=== PATIENT | female | born 1975 | race Caucasian/White ===

== ENCOUNTER 2020-08-27 07:45 | Outpatient (REF) | payer OTHER, SELFPAY ==
[2020-08-27 11:21] LABS: MANUAL DIFF FLAG NO
[2020-08-27 11:30] LABS: Basophils Absolute Auto 0.1 X10*3/uL (0.0-0.2); Basophils Percent Auto 0.6 % (0-2); Eosinophils Absolute Auto 0.4 X10*3/uL (0.0-0.4); Hematocrit 41.1 % (37-47); Hemoglobin 13.7 g/dl (12.0-16.0); Imm Gran Abs Auto 0.04 X10*3/uL (0.00-0.03); Imm Gran Pct Auto 0.4 % (0.0-0.4); Lymphocytes Absolute Auto 2.7 X10*3/uL (1.2-4.9); Mean Corpuscular HGB Conc 33.3 g/dl (31.0-35.0); Mean Corpuscular Hemoglobin 29.7 pg (27.0-33.0); Mean Platelet Volume 11.1 fL (9.4-12.3); Monocytes Absolute Auto 0.7 X10*3/uL (0.1-1.2); Monocytes Percent Auto 7.9 % (2-11); Neutrophils Absolute Auto 5.2 X10*3/uL (2.0-8.3); Neutrophils Percent Auto 57.1 % (45-73); Platelet Count 330 X10*3/uL (160-400); Red Blood Count 4.62 X10*6/uL (4.20-5.50); Red Cell Distribution Width 12.9 % (11.0-16.0); White Blood Count 9.1 X10*3/uL (4.8-10.8)
[2020-08-27 11:43] LABS: Estimated Average Glucose 169 mg/dL; Hemoglobin A1c % 7.5 %
[2020-08-27 12:17] LABS: Alanine Aminotransferase 49 U/L (0-31); Albumin Level 4.5 g/dL (3.5-5.0); Alkaline Phosphatase 68 U/L (39-117); Anion Gap 14 (12-20); Aspartate Amino Transferase 30 U/L (5-31); Bilirubin Total 0.8 mg/dL (0.0-1.0); Blood Urea Nitrogen 13 mg/dL (9-16); Calcium 9.4 mg/dL (8.4-10.2); Carbon Dioxide 24 mmol/L (22-29); Chloride 103 mmol/L (96-108); Cholesterol 162 mg/dL; Estimated Glomerular Filt Rate > 60; Glucose Fasting 171 mg/dL (60-99); HDL Cholesterol 26 mg/dL; LDL Cholesterol Calculated 97 mg/dl; Sodium 136 mmol/L (135-145); Total Protein 7.1 g/dL (6.5-8.0); Triglycerides 196 mg/dL
[2020-08-27 12:23] LABS: Creatinine Urine 214.25 mg/dL; Microalbum/Creatinine Ratio Ur 59.2 ug/mg cr
== END 2020-08-27 07:46 | disposition home or self-care (01) ==
LOC: HO.HMGCLDS 07:45
PROVIDERS: PCP Internal Medicine Nephrology; Visit Provider Internal Medicine Nephrology
DX: E11.9 Type 2 diabetes mellitus without complications (principal)
CPT/HCPCS: 36415; 80053; 80061; 82043; 83036; 85025

== ENCOUNTER 2021-07-26 09:43 | Outpatient (REF) | payer OTHER, SELFPAY ==
[2021-07-26 10:08] LABS: COVID-19 Test Negative (Negative)
== END 2021-07-26 09:44 | disposition home or self-care (01) ==
LOC: HO.LAB 09:43
PROVIDERS: PCP Internal Medicine; Visit Provider Internal Medicine
DX: Z20.822 Contact with and (suspected) exposure to COVID-19 (principal)
CPT/HCPCS: 36415; 87635; C9803

== ENCOUNTER 2021-09-29 08:55 | Outpatient (REF) | payer OTHER, SELFPAY ==
[2021-09-29 11:31] LABS: Hematocrit 39.3 % (37.0-47.0); Hemoglobin 12.7 g/dl (12.0-16.0); Mean Corpuscular HGB Conc 32.3 g/dl (31.0-35.0); Mean Corpuscular Hemoglobin 27.9 pg (27.0-33.0); Mean Corpuscular Volume 86.4 fL (80.0-98.0); Mean Platelet Volume 11.2 fL (9.4-12.3); Platelet Count 341 X10*3/uL (160-400); Red Blood Count 4.55 X10*6/uL (4.20-5.50); Red Cell Distribution Width 13.4 % (11.0-16.0); White Blood Count 7.8 X10*3/uL (4.8-10.8)
[2021-09-29 11:40] LABS: Estimated Average Glucose 186 mg/dL; Hemoglobin A1c % 8.1 %
[2021-09-29 12:02] LABS: Alanine Aminotransferase 48 U/L (0-31); Albumin Level 4.3 g/dL (3.5-5.0); Alkaline Phosphatase 36 U/L (39-117); Anion Gap 13 (12-20); Aspartate Amino Transferase 24 U/L (5-31); Bilirubin Total 0.3 mg/dL (0.0-1.0); Blood Urea Nitrogen 13 mg/dL (9-16); Calcium 9.7 mg/dL (8.4-10.2); Carbon Dioxide 20 mmol/L (22-29); Chloride 110 mmol/L (96-108); Cholesterol 254 mg/dL; Estimated Glomerular Filt Rate > 60; Glucose Fasting 221 mg/dL (60-99); HDL Cholesterol 22 mg/dL; LDL Cholesterol Calculated 162 mg/dl; Potassium 4.6 mmol/L (3.3-5.1); Sodium 138 mmol/L (135-145); Total Protein 7.1 g/dL (6.5-8.0); Triglycerides 350 mg/dL
[2021-09-29 12:26] LABS: Creatinine Urine 216.01 mg/dL; Microalbum/Creatinine Ratio Ur 36.5 ug/mg cr
== END 2021-09-29 08:56 | disposition home or self-care (01) ==
LOC: HO.HMGCLDS 08:55
PROVIDERS: PCP Internal Medicine; Visit Provider Internal Medicine
DX: E11.9 Type 2 diabetes mellitus without complications (principal); I10 Essential (primary) hypertension; M54.9 Dorsalgia, unspecified
CPT/HCPCS: 36415; 80053; 80061; 82043; 83036; 85027

== ENCOUNTER 2022-01-29 08:56 | Outpatient (REF) | payer SELFPAY ==
[2022-01-29 11:39] LABS: Estimated Average Glucose 174 mg/dL; Hemoglobin A1c % 7.7 %
[2022-01-29 11:47] LABS: Alanine Aminotransferase 36 U/L (0-31); Albumin Level 4.3 g/dL (3.5-5.0); Alkaline Phosphatase 50 U/L (39-117); Anion Gap 14 (12-20); Aspartate Amino Transferase 23 U/L (5-31); Bilirubin Total 0.7 mg/dL (0.0-1.0); Blood Urea Nitrogen 15 mg/dL (9-16); Calcium 9.6 mg/dL (8.4-10.2); Carbon Dioxide 19 mmol/L (22-29); Chloride 107 mmol/L (96-108); Cholesterol 182 mg/dL; Estimated Glomerular Filt Rate > 60; Glucose Fasting 185 mg/dL (60-99); HDL Cholesterol 31 mg/dL; LDL Cholesterol Calculated 113 mg/dl; Potassium 4.4 mmol/L (3.3-5.1); Sodium 136 mmol/L (135-145); Total Protein 7.1 g/dL (6.5-8.0); Triglycerides 190 mg/dL
[2022-01-29 13:38] LABS: Creatinine Urine 101.42 mg/dL; Microalbum/Creatinine Ratio Ur 5.9 ug/mg cr
== END 2022-01-29 08:57 | disposition home or self-care (01) ==
LOC: HO.HMGCLDS 08:56
PROVIDERS: PCP Internal Medicine; Visit Provider Internal Medicine
DX: E78.5 Hyperlipidemia, unspecified (principal); E11.9 Type 2 diabetes mellitus without complications; I10 Essential (primary) hypertension
CPT/HCPCS: 36415; 80053; 80061; 82043; 83036

== ENCOUNTER 2022-04-25 08:18 | Outpatient (REF) | payer OTHER, SELFPAY ==
[2022-04-25 12:11] LABS: Alanine Aminotransferase 27 U/L (0-31); Albumin Level 4.2 g/dL (3.5-5.0); Alkaline Phosphatase 50 U/L (39-117); Anion Gap 14 (12-20); Aspartate Amino Transferase 18 U/L (5-31); Bilirubin Total 0.2 mg/dL (0.0-1.0); Blood Urea Nitrogen 14 mg/dL (9-16); Calcium 9.1 mg/dL (8.4-10.2); Carbon Dioxide 20 mmol/L (22-29); Chloride 107 mmol/L (96-108); Cholesterol 229 mg/dL; Estimated Glomerular Filt Rate > 60; Glucose Fasting 184 mg/dL (60-99); HDL Cholesterol 30 mg/dL; Potassium 4.4 mmol/L (3.3-5.1); Sodium 137 mmol/L (135-145); Triglycerides 449 mg/dL
[2022-04-25 12:24] LABS: Estimated Average Glucose 163 mg/dL; Hemoglobin A1c % 7.3 %
[2022-04-25 12:32] LABS: Creatinine Urine 37.54 mg/dL; Microalbumin Urine < 5.0 mg/L
== END 2022-04-25 08:19 | disposition home or self-care (01) ==
LOC: HO.HMGCLDS 08:18
PROVIDERS: PCP Internal Medicine; Visit Provider Internal Medicine
DX: I10 Essential (primary) hypertension (principal); E11.9 Type 2 diabetes mellitus without complications
CPT/HCPCS: 36415; 80053; 80061; 82043; 83036

== ENCOUNTER 2022-09-05 09:14 | Outpatient (REF) | payer OTHER, SELFPAY ==
[2022-09-05 11:21] LABS: MANUAL DIFF FLAG NO
[2022-09-05 11:30] LABS: Basophils Absolute Auto 0.1 X10*3/uL (0.0-0.2); Basophils Percent Auto 0.8 % (0-2); Eosinophils Absolute Auto 0.2 X10*3/uL (0.0-0.4); Eosinophils Percent Auto 1.9 % (0-4); Hematocrit 44.9 % (37.0-47.0); Hemoglobin 14.4 g/dl (12.0-16.0); Imm Gran Abs Auto 0.03 X10*3/uL (0.00-0.03); Imm Gran Pct Auto 0.3 % (0.0-0.4); Lymphocytes Absolute Auto 2.4 X10*3/uL (1.2-4.9); Lymphocytes Percent Auto 26.7 % (20-40); Mean Corpuscular HGB Conc 32.1 g/dl (31.0-35.0); Mean Corpuscular Hemoglobin 28.5 pg (27.0-33.0); Mean Corpuscular Volume 88.9 fL (80.0-98.0); Monocytes Absolute Auto 0.7 X10*3/uL (0.1-1.2); Monocytes Percent Auto 7.5 % (2-11); Neutrophils Absolute Auto 5.6 x10*3/uL (2.0-8.3); Neutrophils Percent Auto 62.8 % (45-73); Platelet Count 303 X10*3/uL (160-400); Red Blood Count 5.05 X10*6/uL (4.20-5.50); Red Cell Distribution Width 13.2 % (11.0-16.0)
[2022-09-05 11:36] LABS: Estimated Average Glucose 148 mg/dL; Hemoglobin A1c % 6.8 %
[2022-09-05 11:53] LABS: Creatinine Urine 103.62 mg/dL; Microalbum/Creatinine Ratio Ur 5.7 ug/mg cr
[2022-09-05 12:25] LABS: Alanine Aminotransferase 32 U/L (0-31); Albumin Level 4.2 g/dL (3.5-5.0); Alkaline Phosphatase 48 U/L (39-117); Anion Gap 12 (12-20); Aspartate Amino Transferase 19 U/L (5-31); Bilirubin Total 0.4 mg/dL (0.0-1.0); Blood Urea Nitrogen 13 mg/dL (9-16); Calcium 9.4 mg/dL (8.4-10.2); Carbon Dioxide 21 mmol/L (22-29); Chloride 107 mmol/L (96-108); Cholesterol 149 mg/dL; Estimated Glomerular Filt Rate > 60; Glucose Fasting 166 mg/dL (60-99); HDL Cholesterol 28 mg/dL; LDL Cholesterol Calculated 85 mg/dl; Potassium 4.2 mmol/L (3.3-5.1); Sodium 136 mmol/L (135-145); TSH reflex Free T4 1.42 uIU/mL (0.32-4.0); Total Protein 6.7 g/dL (6.5-8.0); Triglycerides 184 mg/dL
== END 2022-09-05 09:15 | disposition home or self-care (01) ==
LOC: HO.HMGCLDS 09:14
PROVIDERS: PCP Internal Medicine; Visit Provider Internal Medicine
DX: E11.9 Type 2 diabetes mellitus without complications (principal); E78.5 Hyperlipidemia, unspecified; I10 Essential (primary) hypertension
CPT/HCPCS: 36415; 80053; 80061; 82043; 83036; 84443; 85025

== ENCOUNTER → 2022-10-25 12:30 | Outpatient (BNVA) | payer OTHER, SELFPAY | PROVIDERS: PCP Internal Medicine; Visit Provider Dietitian, Registered | DX: E11.9 Type 2 diabetes mellitus without complications (principal); Z71.3 Dietary counseling and surveillance | CPT/HCPCS: 97802 ==

== ENCOUNTER 2023-02-21 08:55 | Outpatient (REF) | payer OTHER, SELFPAY ==
[2023-02-21 11:08] LABS: MANUAL DIFF FLAG NO
[2023-02-21 11:39] LABS: Basophils Absolute Auto 0.1 X10*3/uL (0.0-0.2); Basophils Percent Auto 0.6 % (0-2); Eosinophils Absolute Auto 0.1 X10*3/uL (0.0-0.4); Eosinophils Percent Auto 1.2 % (0-4); Hematocrit 44.5 % (37.0-47.0); Hemoglobin 14.9 g/dl (12.0-16.0); Imm Gran Abs Auto 0.03 X10*3/uL (0.00-0.03); Imm Gran Pct Auto 0.3 % (0.0-0.4); Lymphocytes Absolute Auto 2.3 X10*3/uL (1.2-4.9); Lymphocytes Percent Auto 26.3 % (20-40); Mean Corpuscular HGB Conc 33.5 g/dl (31.0-35.0); Mean Corpuscular Hemoglobin 30.2 pg (27.0-33.0); Mean Corpuscular Volume 90.1 fL (80.0-98.0); Monocytes Absolute Auto 0.6 X10*3/uL (0.1-1.2); Monocytes Percent Auto 6.5 % (2-11); Neutrophils Absolute Auto 5.6 x10*3/uL (2.0-8.3); Neutrophils Percent Auto 65.1 % (45-73); Platelet Count 292 X10*3/uL (160-400); Red Blood Count 4.94 X10*6/uL (4.20-5.50); Red Cell Distribution Width 13.1 % (11.0-16.0); White Blood Count 8.6 X10*3/uL (4.8-10.8)
[2023-02-21 11:47] LABS: Estimated Average Glucose 154 mg/dL
[2023-02-21 11:55] LABS: Creatinine Urine 80.15 mg/dL; Microalbum/Creatinine Ratio Ur 14.9 ug/mg cr
[2023-02-21 12:15] LABS: Alanine Aminotransferase 29 U/L (0-31); Albumin Level 4.1 g/dL (3.5-5.0); Alkaline Phosphatase 51 U/L (39-117); Anion Gap 12 (12-20); Aspartate Amino Transferase 15 U/L (5-31); Bilirubin Total 0.4 mg/dL (0.0-1.0); Blood Urea Nitrogen 12 mg/dL (9-16); Calcium 9.9 mg/dL (8.4-10.2); Carbon Dioxide 21 mmol/L (22-29); Chloride 110 mmol/L (96-108); Cholesterol 143 mg/dL; Estimated Glomerular Filt Rate > 60; Glucose Fasting 192 mg/dL (60-99); HDL Cholesterol 31 mg/dL; LDL Cholesterol Calculated 86 mg/dl; Potassium 4.1 mmol/L (3.3-5.1); Sodium 139 mmol/L (135-145); Total Protein 6.7 g/dL (6.5-8.0); Triglycerides 130 mg/dL
[2023-02-22 12:38] LABS: BV Int Neg Control Negative (Negative); BV Int Pos Control Positive (Positive)
== END 2023-02-21 08:56 | disposition home or self-care (01) ==
LOC: HO.HMGCLDS 08:55
PROVIDERS: PCP Internal Medicine; Visit Provider Internal Medicine
DX: E11.9 Type 2 diabetes mellitus without complications (principal); E78.5 Hyperlipidemia, unspecified; I10 Essential (primary) hypertension; N76.0 Acute vaginitis
CPT/HCPCS: 36415; 80053; 80061; 82043; 83036; 85025; 87480; 87510; 87660

== ENCOUNTER 2023-02-21 12:53 | Outpatient (REF) | payer OTHER, SELFPAY | END 2023-02-21 12:54 | disposition home or self-care (01) | LOC: HO.LAB 12:53 | PROVIDERS: Visit Provider Internal Medicine | DX: Z13.89 Encounter for screening for other disorder (principal) ==

== ENCOUNTER 2023-04-17 12:21 | Outpatient (AMB) | payer OTHER, SELFPAY ==
--- NOTE | 2023-04-17 13:48 | AM.OFFWIN_ITS ---
Intake Vital Signs 04/17/23 13:55 Height 5 ft 6 in BP 120/70 Blood Pressure Location Lt brachial Position Sitting Pulse 98 Pulse Source Pulse Oximeter Temp 97.8 F Temp Source Temporal Artery Scan Pulse Oximetry (%) 99 Oxygen Delivery Method Room Air Intake Visit Reasons: EP Vaginal itching/burning (lobby) Intake Note: Pt is here c/o vaginal itching and burning sensation. Pt states it has been on going on and off for four months. Patient Tobacco Use Status: Never used Tobacco Allergies No Known Allergies Allergy (Verified 04/17/23 13:55) Do you need a note to return to daycare/school/sports/work: No HPI HPI Comments History of Present Illness Details 47-year-old female presents for continued vaginal itching and irrit ation. Was treated for a yeast infection on 02/21/2023 with poor effects. She states that her vagina is still irritated, inflamed, and burned every time she urinates or takes a shower. She has no risk of sexually transmitted infection, and does not report malodorous discharge. ON LICENSE OF [facility] Medical History Back pain Blurred vision, bilateral Diabetes High cholesterol Hyperlipidemia Hypertension Normal pelvic exam Family History Father Hypertension CVA (cerebral vascular accident), Onset Age: 53 Social History Household Members Other:: , from [facility] Alcohol intake: current Alcohol intake frequency: holidays/special occasions only Patient Tobacco Use Status: Never used Tobacco e-Cigarette/Vaping Use: Never Used Current occupational status: employed Cognitive needs: No Hearing needs: No Vision needs: No Review of Systems Const Details: Constitutional: No Fever, No Chills Cardiovascular: No Chest Pain, No SOB Respiratory: No Cough, No Dyspnea Gastrointestinal: No Nausea, No Vomiting, No Diarrhea, No abdominal Pain Genitourinary: Positive Dysuria, positive vaginal irritation, No Hematuria Musculoskeletal: No joint pain, No Myalgias, No Joint Swelling Skin: No Skin lacerations, No rash Neuro: No Weakness, No Dizziness, No Headache All systems reviewed & are unremarkable except as noted in HPI and below Physical Exam Vital Signs: Last Vital Signs Temp 97.8 F 04/17/23 13:55 Pulse 98 04/17/23 13:55 BP 120/70 04/17/23 13:55 Pulse Ox 99 04/17/23 13:55 Oxygen Delivery Method Room Air 04/17/23 13:55 Appearance: Alert. Oriented X3. No acute distress. Eyes: Pupils equal, round and reactive to light. Neck: Normal inspection. Neck supple. CVS: Normal heart rate and rhythm. Pulses normal. Respiratory: No respiratory distress. Breath sounds normal. Abdomen: Soft and nontender. Genitourinary: Labia excoriated, frothy nonodorous discharge from the vagina, no cervical motion tenderness, no adnexal tenderness. Skin: Skin warm and dry. Normal skin color. Normal skin turgor. Extremities: No lower extremity edema. Gait well balanced well coordinated. Neuro: No motor deficit. No sensory deficit. Cranial nerves 2-12 intact. Results AMB Urinalysis, Automated UA Leukoctes 0 Yehuda/uL Last Edit by Giovanna Ramos CMA on 04/17/23 14:01 UA Nitrite Negative Last Edit by Giovanna Ramos CMA on 04/17/23 14:01 UA Urobilinogen 0.2 mg/dL Last Edit by Giovanna Ramos CMA on 04/17/23 14:01 UA Protein 0 mg/dL Last Edit by Giovanna Ramos CMA on 04/17/23 14:01 UA pH 5.5 Last Edit by Giovanna Ramos, LUZ MARIA on 04/17/23 14:01 UA Blood 0 Julian/uL Last Edit by Giovanna Ramos, LUZ MARIA on 04/17/23 14:01 UA Specific [place] 1.020 Last Edit by Giovanna Ramos CMA on 04/17/23 14:0 1 UA Ketone Negative Last Edit by Giovanna Ramos CMA on 04/17/23 14:01 UA Bilirubin 0 mg/dL Last Edit by Giovanna Ramos CMA on 04/17/23 14:01 UA Glucose 1000 mg/dL Last Edit by Giovanna Ramos CMA on 04/17/23 14:01 AMB Urinalysis, Automated UA Leukoctes 0 Yehuda/uL Last Edit by Giovanna Ramos CMA on 04/17/23 14:06 UA Nitrite Negative Last Edit by Giovanna Ramos, LUZ MARIA on 04/17/23 14:06 UA Urobilinogen 0.2 mg/dL Last Edit by Giovanna Ramos, DROP WIRE OPERATOR on 04/17/23 14:06 UA Protein 0 mg/dL Last Edit by Giovanna Ramos, DROP WIRE OPERATOR on 04/17/23 14:06 UA pH 5.5 Last Edit by Giovanna Ramos, DROP WIRE OPERATOR on 04/17/23 14:06 UA Blood 10 Julian/uL Last Edit by Giovanna Ramos, DROP WIRE OPERATOR on 04/17/23 14:06 UA Specific [place] 1.025 Last Edit by Giovanna Ramos, DROP WIRE OPERATOR on 04/17/23 14:0 6 UA Ketone Negative Last Edit by Giovanna Ramos, LUZ MARIA on 04/17/23 14:06 UA Bilirubin 0 mg/dL Last Edit by Giovanna Ramos, DROP WIRE OPERATOR on 04/17/23 14:06 UA Glucose 0 mg/dL Last Edit by Giovanna Ramos, DROP WIRE OPERATOR on 04/17/23 14:06 Results Reviewed Results Reviewed: Laboratory Last Values Urine pH (Auto) 5.5 04/17/23 13:59 Urine pH (Auto) 5.5 04/17/23 13:59 Specific [place] (Auto) 1.020 04/17/23 13:59 Specific [place] (Auto) 1.025 04/17/23 13:59 Urine Protein (Auto) 0 mg/dL 04/17/23 13:59 Urine Protein (Auto) 0 mg/dL 04/17/23 13:59 Glucose (UA)(Auto) 0 mg/dL 04/17/23 13:59 Glucose (UA)(Auto) 1000 mg/dL 04/17/23 13:59 Urine Ketones (Auto) Negative 04/17/23 13:59 Urine Ketones (Auto) Negative 04/17/23 13:59 Urine Blood (Auto) 0 Julian/uL 04/17/23 13:59 Urine Blood (Auto) 10 Julian/uL 04/17/23 13:59 Urine Nitrite (Auto) Negative 04/17/23 13:59 Urine Nitrite (Auto) Negative 04/17/23 13:59 Urine Bilirubin (Auto) 0 mg/dL 04/17/23 13:59 Urine Bilirubin (Auto) 0 mg/dL 04/17/23 13:59 Urine Urobilinogen (Auto) 0.2 mg/dL 04/17/23 13:59 Urine Urobilinogen (Auto) 0.2 mg/dL 04/17/23 13:59 Leukocyte Esterase (Auto) 0 Yehuda/uL 04/17/23 13:59 Leukocyte Esterase (Auto) 0 Yehuda/uL 04/17/23 13:59 Assessment & Plan Assessment & Plan (1) Vaginitis: Code(s): N76.0 - Acute vaginitis Plan 47-year-old female presents with continued vaginal irritation and discharge. Was treated on 02/21/2023 for yeast infection however patient's symptoms have not alleviated. She does not report any discolored vaginal discharge, denies abdominal pain, fevers and chills. She does not have any risk for sexually transmitted infection, and feels that this could possibly be bacterial vaginosis or yeast. Patient is on Ozempic and is a diabetic. Physical exam indicates excoriated vaginal labia consistent with candidiasis, and frothy non odorous discharge consistent with bacterial vaginosis. 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 Patient does not have any cervical motion tenderness, or adnexal tenderness. Plan of care to treat for BV and recurrent candidiasis. Patient verbalized understanding of discharge instructions. Verbalized understandings of signs and symptoms indicating need for emergent intervention. Orders: Orders Bacterial Vaginosis Panel Today N76.0 - Acute vaginitis AMB Urinalysis Automated Today Z13.9 - Encounter for screening, unspecified AMB Urinalysis Automated Today Z13.9 - Encounter for screening, unspecified Medications: New metronidazole 500 mg PO Q8H 7 days 21 tabs 0RF fluconazole (Diflucan) may repeat second dose 72 hrs after first dose if symptoms persist 150 mg PO Q3D 2 tabs 0RF Patient Instructions: Voc? foi avaliado por irrita??o vaginal. Testamos voc? para vaginose bacteriana e candid?ase. Seu exame f?sico ? consistente com vaginose bacteriana. Estamos tratando voc? com Flagyl 500 mg a cada 8 horas chase os pr?ximos 7 paulino. Voc? n?o pode beber ?lcool com giselle medicamento. Mulat Diflucan 150 mg arun vez e repita em 3 paulino. Giselle medicamento ? para infec??o por fungos. Obrigado por escolher giselle atendimento urgente para avalia??o. Fa?a o acompanhamento com o m?dico de cuidados prim?rodriguez, conforme necess?wil. Retorne ao departamento de emerg?ncia para quaisquer sintomas novos, preocupantes ou agravados. You were evaluated for vaginal irritation. We tested you for bacterial vaginosis and candidiasis. Your physical exam is consistent with bacterial vaginosis. We are treating you with Flagyl 500 mg every 8 hours for the next 7 days. You cannot drink alcohol with this medication. Please take Diflucan 150 mg once, and then repeat in 3 days. This medication is for yeast infection. Thank you for choosing this urgent care for evaluation. Please follow-up with primary care physician as needed. Return to the emergency department for any new, concerning, or worsening symptoms. Coding Level of Care Code Est Pt Level 3 (60484) Diagnoses Vaginitis N76.0
[2023-04-17 13:55] VITALS: BP 120/70; PULSE 98; TEMP 36.6; O2SAT 99
== END 2023-04-17 14:47 | disposition home or self-care (01) ==
PROVIDERS: PCP Internal Medicine; Visit Provider Nurse Practitioner Family
DX: N76.0 Acute vaginitis (principal); Z13.9 Encounter for screening, unspecified
CPT/HCPCS: 81003; 99213

== ENCOUNTER 2023-04-17 13:59 | Outpatient (REF) | payer OTHER, SELFPAY ==
[2023-04-18 14:59] LABS: BV Int Neg Control Negative (Negative); BV Int Pos Control Positive (Positive)
== END 2023-04-17 14:00 | disposition home or self-care (01) ==
LOC: HO.LAB 13:59
PROVIDERS: Visit Provider Nurse Practitioner Family
DX: N76.0 Acute vaginitis (principal)
CPT/HCPCS: 87480; 87510; 87660

== ENCOUNTER 2023-05-16 07:31 | Outpatient (REF) | payer OTHER, SELFPAY ==
[2023-05-16 11:28] LABS: Estimated Average Glucose 134 mg/dL; Hemoglobin A1c % 6.3 % (<6.0)
[2023-05-16 11:41] LABS: Creatinine Urine 104.11 mg/dL; Microalbum/Creatinine Ratio Ur 8.6 ug/mg cr (<30)
[2023-05-16 11:52] LABS: Alanine Aminotransferase 35 U/L (0-31); Alkaline Phosphatase 45 U/L (39-117); Anion Gap 13 (12-20); Aspartate Amino Transferase 22 U/L (5-31); Bilirubin Total 0.4 mg/dL (0.0-1.0); Blood Urea Nitrogen 13 mg/dL (9-16); Calcium 9.5 mg/dL (8.4-10.2); Carbon Dioxide 20 mmol/L (22-29); Chloride 109 mmol/L (96-108); Estimated Glomerular Filt Rate > 60; Glucose Fasting 133 mg/dL (60-99); Potassium 3.8 mmol/L (3.3-5.1); Sodium 138 mmol/L (135-145); Total Protein 6.9 g/dL (6.5-8.0)
== END 2023-05-16 07:32 | disposition home or self-care (01) ==
LOC: HO.HMGCLDS 07:31
PROVIDERS: PCP Internal Medicine; Visit Provider Internal Medicine
DX: E11.9 Type 2 diabetes mellitus without complications (principal); I10 Essential (primary) hypertension; E78.5 Hyperlipidemia, unspecified
CPT/HCPCS: 36415; 80053; 82043; 83036

== ENCOUNTER 2023-05-17 12:08 | Outpatient (AMB) | payer OTHER, SELFPAY ==
--- NOTE | 2023-05-17 12:24 | MHC.PC.OV ---
Vital Signs 05/17/23 12:25 Height 5 ft 6 in Weight 169 lb 8 oz BMI 27.4 BP 108/60 Blood Pressure Location Rt brachial Position Sitting Pulse 78 Pulse Source Pulse Oximeter Pulse Oximetry (%) 96 Oxygen Delivery Method Room Air Intake Visit Reasons: Annual PE/DM Allergies No Known Allergies Allergy (Verified 05/17/23 12:26) Medication List - Last Reconciled 05/17/23 by Shelli Guadarrama MD atorvastatin 40 mg PO DAILY blood sugar diagnostic (FreeStyle Lite Strips) Test blood sugar once a day empagliflozin-linagliptin 25-5 mg (Glyxambi) 1 tab PO DAILY lancets (FreeStyle Lancets) As directed lisinopril 20 mg PO DAILY metformin ER 1,000 mg (2 x 500 mg) PO BID semaglutide (Ozempic) 0.25 mg (0.368 mL) subcut QWEEK Tobacco use date assessed: 05/17/23 HPI Annual PE/DM HPI Details Pt presents fo PE. Patient complains of chronic lower back pain and stiffness worse in the morning. 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 Patient denies lower back pain radiating to lower extremities, weakness or numbness in extremities. [facility] Medical History Back pain Blurred vision, bilateral Diabetes High cholesterol Hyperlipidemia Hypertension Normal pelvic exam Family History Father Hypertension CVA (cerebral vascular accident), Onset Age: 53 Social History Household Members Other:: , from [place] Housing: Condominium Alcohol intake: current Alcohol intake frequency: holidays/special occasions only Patient Tobacco Use Status: Never used Tobacco e-Cigarette/Vaping Use: Never Used Current occupational status: employed Cognitive needs: No Hearing needs: No Vision needs: No Questionnaire Thrive Questionnaire Date Thrive assessed: 11/15/21 CHELLY-7 AMB Questionnaire CHELLY-7 Date CHELLY - 7 assessed: 11/15/21 Source: Developed by Drs. Vinnie George, Veronique Mayers, Herman Nicole and colleagues, with an educational angel from [employer]. Review of Systems Const All systems reviewed & are unremarkable except as noted in HPI and below Reports no additional complaints Eyes Reports no additional complaints ENT Reports no additional complaints Physical exam (Primary Care) Vital Signs: Last Vital Signs Pulse 78 05/17/23 12:25 BP 108/60 05/17/23 12:25 Pulse Ox 96 05/17/23 12:25 Oxygen Delivery Method Room Air 05/17/23 12:25 BMI result Body Mass Index 27.4 Tobacco/Smoking Status: Tobacco use Status Tobacco use date assessed 05/17/23 05/17/23 12:30 Patient Tobacco Use Status Never used Tobacco 05/17/23 12:24 e-Cigarette/Vaping Use Never Used 05/17/23 12:24 Thrive Assessment: Date of Thrive Assessment Date Thrive assessed 11/15/21 05/17/23 12:24 Const General: no acute distress HENMT Head: Yes normal to inspection Ears: hearing grossly normal bilaterally General nose exam: Normal external nose present Face and sinus: Yes normal facial exam Mouth: Normal oral and palatal mucosa present Throat: Yes posterior oropharynx normal Eyes General: appearance normal, both eyes and all related structures Neck Neck: Yes no lymphadenopathy and Yes supple Resp Effort & Inspection: normal respiratory effort Auscultation: clear to auscultation bilaterally Cardio Rhythm: regular rhythm Heart sounds: S1 normal heart sound present and S2 normal heart sound present GI Inspection: Yes normal to inspection Palpation (GI): Soft to palpation Percussion: Yes normal to percussion Auscultation: normal bowel sounds Back/Spine/Pelvis Other: Decreased range of motion in lumbar spine, paraspinal tenderness bilaterally, straight leg rising 90 degrees bilaterally Assessment and Plan Assessment & Plan (1) Lower back pain: Code(s): M54.50 - Low back pain, unspecified Plan: Referred to physical (2) Hyperlipidemia: Code(s): E78.5 - Hyperlipidemia, unspecified Plan: Continue statin (3) Diabetes: Code(s): E11.9 - Type 2 diabetes mellitus without complications Plan: A1c is down to 6.3, continue current medications ADA diet increase physical activity, follow-up in 3 months with a fasting labs before (4) Hypertension: Code(s): I10 - Essential (primary) hypertension Plan: Continue lisinopril (5) Annual physical exam: Code(s): Z00.00 - Encounter for general adult medical examination without abnormal findings Plan: Well-balanced diet regular physical activity discussed with the patient. Refer for screening colonoscopy. Orders: Orders PT Evaluation and Treatment Today M54.50 - Low back pain, unspecified Comprehensive [place]. Panel Fast 3 Months E11.9 - Type 2 diabetes mellitus without complications, E78.5 - Hyperlipidemia, unspecified, I10 - Essential (primary) hypertension Hemoglobin A1c 3 Months E11.9 - Type 2 diabetes mellitus without complications, E78.5 - Hyperlipidemia, unspecified, I10 - Essential (primary) hypertension Lipid Panel 3 Months E11.9 - Type 2 diabetes mellitus without complications, E78.5 - Hyperlipidemia, unspecified, I10 - Essential (primary) hypertension Microalbumin, Random (w Creat) 3 Months E11.9 - Type 2 diabetes mellitus without complications, E78.5 - Hyperlipidemia, unspecified, I10 - Essential (primary) hypertension Complete Blood Count Auto Diff 3 Months E11.9 - Type 2 diabetes mellitus without complications, E78.5 - Hyperlipidemia, unspecified, I10 - Essential (primary) hypertension Referrals Gastroenterology Referral Z00.00 - Encounter for general adult medical examination without abnormal findings Medications: Changed From semaglutide (Ozempic) for 4 weeks, then 0.5 mg Q week, 0.25 mg (0.368 mL) subcut QWEEK 3 mL 4RF To semaglutide (Ozempic) 0.5 mg Q week, 0.25 mg (0.368 mL) subcut QWEEK 9 mL 4RF Coding Level of Care Code Est Pt Prev Care 40-64y(78877) Diagnoses Lower back pain M54.50 Hyperlipidemia E78.5 Diabetes E11.9 Hypertension I10 Annual physical exam Z00.00
[2023-05-17 12:25] VITALS: BP 108/60; PULSE 78; O2SAT 96; BMI 27.4
== END 2023-05-17 13:17 | disposition home or self-care (01) ==
PROVIDERS: Visit Provider Internal Medicine
DX: Z00.00 Encounter for general adult medical examination without abnormal findings (principal); E11.9 Type 2 diabetes mellitus without complications; I10 Essential (primary) hypertension; M54.50 Low back pain, unspecified; E78.5 Hyperlipidemia, unspecified
CPT/HCPCS: 99396

== ENCOUNTER 2023-08-14 12:10 | Outpatient (AMB) | payer OTHER, SELFPAY ==
--- NOTE | 2023-08-14 12:17 | MHC.OFFVIS ---
Intake Vital Signs 08/14/23 12:18 Height 5 ft 6 in Weight 169 lb 12.095 oz BMI 27.4 BP 101/66 Blood Pressure Location Lt brachial Position Sitting Pulse 80 Pulse Source Pulse Oximeter Intake Visit Reasons: Colonoscopy Screening Intake Note: Pt presents to the office today for a colonoscopy screening. Pt states she is feeling well and denies any GI concerns at this time. Accompanied by: Spouse Allergies No Known Allergies Allergy (Verified 08/14/23 12:20) HPI HPI Comments History of Present Illness Details A DM 48 y/o female referred for index screening colonoscopy appetite- good Bowels- ok - fluctuate due to DM medications No respiratory or cardiac issues No N/V/abdominal pain- fever orchills PFSH Medical History Blurred vision, bilateral Hyperlipidemia Back pain Normal pelvic exam High cholesterol Hypertension Diabetes Family History Father Hypertension CVA (cerebral vascular accident), Onset Age: 53 Social History Household Members Other:: , from [place] Housing: Condominium Alcohol intake: current Alcohol intake frequency: holidays/special occasions only Patient Tobacco Use Status: Never used Tobacco e-Cigarette/Vaping Use: Never Used Current occupational status: employed Cognitive needs: No Hearing needs: No Vision needs: No Review of Systems Const All systems reviewed & are unremarkable except as noted in HPI and below Card Denies chest pain and Denies dyspnea Resp Denies dyspnea GI Denies abdominal pain, Denies hematochezia, Denies change in bowel habits, Denies nausea and Denies vomiting Musc Reports back pain Physical Exam Vital Signs: Last Vital Signs Pulse 80 08/14/23 12:18 BP 101/66 08/14/23 12:18 BMI result Body Mass Index 27.4 Const General: cooperative, healthy appearing and comfortable Orientation/consciousness: patient oriented x3 Limitations: language barrier Eyes Sclerae: sclerae normal Resp Effort & Inspection: normal respiratory effort and able to speak in complete sentences Auscultation: clear to auscultation bilaterally, no rales, no rhonchi and no wheezes Cardio Rate: regular rate Rhythm: regular rhythm Heart sounds: S1 normal heart sound present and S2 normal heart sound present GI Palpation (GI): Soft to palpation and nontender Auscultation: normal bowel sounds Skin General skin exam: no rashes or lesions noted Neuro General: patient oriented x3 Extrem General: Yes full ROM Psych Appearance: grossly normal and well kempt Mental Status: mental status grossly normal Speech and movement: Normal speech and movement present and Clear speech present Affect: normal affect Attitude: cooperative Thought process: Normal thought process present Insight: Good insight present (Psych) Judgement: Good judgement present (Psych) Assessment & Plan Assessment & Plan (1) Encounter for screening colonoscopy: Comment: pleasant- present- no complaints Code(s): Z12.11 - Encounter for screening for malignant neoplasm of colon Plan Colonoscopy Miralax- gatorade discussed DM meds- D/C ozempic dose 1 wk prior No metformin pm before No DM meds a.m. of procedure Orders: Orders Colonoscopy - GI Use Only Today Z12.11 - Encounter for screening for malignant neoplasm of colon Medications: New bisacodyl (Dulcolax (bisacodyl)) Day before procedure, prep day Take 4 tablets by mouth upon awakening followed by large glass of water 20 mg (4 x 5 mg) PO ONCE 1 day 4 tabs 0RF colonoscopy prep Z12.11 - Encounter for screening for malignant neoplasm of colon polyethylene glycol 3350 (Miralax) Take as directed by mouth the day before your procedure. 238 grams PO ONCE 1 day PRN 238 grams 0RF laxative effect Patient Instructions: Index Colonoscopy Miralax- gatorade- reviewed- lit given discussed DM meds- D/C ozempic dose 1 wk prior No metformin pm before No DM meds a.m. of procedure Coding Level of Care Code New Pt Level 3 (42461) Diagnoses Encounter for screening colonoscopy Z12.11 Time Spent (min) 30
[2023-08-14 12:18] VITALS: BP 101/66; PULSE 80; BMI 27.4
== END 2023-08-14 13:27 | disposition home or self-care (01) ==
PROVIDERS: PCP Internal Medicine; Visit Provider Physician Assistant
DX: Z01.818 Encounter for other preprocedural examination (principal); Z12.11 Encounter for screening for malignant neoplasm of colon
CPT/HCPCS: S0285

== ENCOUNTER → 2023-08-14 12:10 | Outpatient (BNVA) | payer OTHER, SELFPAY | PROVIDERS: PCP Internal Medicine; Visit Provider Physician Assistant ==

== ENCOUNTER 2023-09-04 07:28 | Outpatient (REF) | payer OTHER, SELFPAY ==
[2023-09-04 11:23] LABS: MANUAL DIFF FLAG NO
[2023-09-04 11:36] LABS: Basophils Absolute Auto 0.1 X10*3/uL (0.0-0.2); Basophils Percent Auto 0.6 % (0-2); Eosinophils Absolute Auto 0.1 X10*3/uL (0.0-0.4); Eosinophils Percent Auto 1.4 % (0-4); Hematocrit 44.8 % (37.0-47.0); Hemoglobin 14.6 g/dl (12.0-16.0); Imm Gran Abs Auto 0.02 X10*3/uL (0.00-0.03); Imm Gran Pct Auto 0.2 % (0.0-0.4); Lymphocytes Percent Auto 35.9 % (20-40); Mean Corpuscular HGB Conc 32.6 g/dl (31.0-35.0); Mean Corpuscular Hemoglobin 29.2 pg (27.0-33.0); Mean Corpuscular Volume 89.6 fL (80.0-98.0); Mean Platelet Volume 10.9 fL (9.4-12.3); Monocytes Absolute Auto 0.6 X10*3/uL (0.1-1.2); NRBC Pct Auto 0.2 /100WBC (0.0-0.2); Neutrophils Absolute Auto 4.6 x10*3/uL (2.0-8.3); Neutrophils Percent Auto 54.9 % (45-73); Platelet Count 311 X10*3/uL (160-400); Red Cell Distribution Width 13.3 % (11.0-16.0); White Blood Count 8.4 X10*3/uL (4.8-10.8)
[2023-09-04 11:54] LABS: Estimated Average Glucose 143 mg/dL; Hemoglobin A1c % 6.6 % (<6.0)
[2023-09-04 12:16] LABS: Alanine Aminotransferase 35 U/L (0-31); Albumin Level 4.2 g/dL (3.5-5.0); Alkaline Phosphatase 49 U/L (39-117); Anion Gap 14 (12-20); Aspartate Amino Transferase 22 U/L (5-31); Bilirubin Total 0.4 mg/dL (0.0-1.0); Blood Urea Nitrogen 15 mg/dL (9-16); Calcium 9.5 mg/dL (8.4-10.2); Carbon Dioxide 18 mmol/L (22-29); Chloride 110 mmol/L (96-108); Cholesterol 149 mg/dL (<200); Estimated Glomerular Filt Rate > 60; Glucose Fasting 143 mg/dL (60-99); HDL Cholesterol 29 mg/dL (>40); LDL Cholesterol Calculated 87 mg/dL (<100); Potassium 3.8 mmol/L (3.3-5.1); Sodium 138 mmol/L (135-145); Triglycerides 169 mg/dL (<150)
[2023-09-04 12:46] LABS: Creatinine Urine 59.59 mg/dL; Microalbum/Creatinine Ratio Ur 8.3 ug/mg cr (<30)
== END 2023-09-04 07:29 | disposition home or self-care (01) ==
LOC: HO.HMGCLDS 07:28
PROVIDERS: PCP Internal Medicine; Visit Provider Internal Medicine
DX: E78.5 Hyperlipidemia, unspecified (principal); E11.9 Type 2 diabetes mellitus without complications; I10 Essential (primary) hypertension
CPT/HCPCS: 36415; 80053; 80061; 82043; 82570; 83036; 85025

== ENCOUNTER 2023-09-06 12:43 | Outpatient (AMB) | payer OTHER, SELFPAY ==
--- NOTE | 2023-09-06 12:59 | MHC.PC.OV ---
Vital Signs 09/06/23 13:00 Height 5 ft 6 in Weight 168 lb BMI 27.1 BP 108/68 Blood Pressure Location Lt brachial Position Sitting Pulse 81 Pulse Source Pulse Oximeter Pulse Oximetry (%) 97 Oxygen Delivery Method Room Air Intake Visit Reasons: 3 month fu Intake Note: pt is here today for 3 months follow up visit. Allergies No Known Allergies Allergy (Verified 09/06/23 13:00) Medication List - Last Reconciled 09/06/23 by Shelli Guadarrama MD atorvastatin 40 mg PO DAILY bisacodyl (Dulcolax (bisacodyl)) 20 mg (4 x 5 mg) PO ONCE 1 day blood sugar diagnostic (FreeStyle Lite Strips) Test blood sugar once a day empagliflozin-linagliptin 25-5 mg (Glyxambi) 1 tab PO DAILY lancets (FreeStyle Lancets) As directed lisinopril 20 mg PO DAILY metformin ER 1,000 mg (2 x 500 mg) PO BID polyethylene glycol 3350 (Miralax) 238 grams PO ONCE PRN 1 day semaglutide (Ozempic) 1 mg (0.75 mL) subcut QWEEK Tobacco use date assessed: 09/06/23 Dental Screening Dental Screen Date: 09/06/23 Did you have a dental visit in the last 12 months?: Yes Did you have a dental problem in the last 6 months where you did not have access to dental care?: No Was dental information given to patient?: Patient has dentist HPI 3 month fu HPI Details Patient presents for the follow-up of type 2 diabetes hypertension hyperlipidemia. Patient has been eating more carbohydrates and sweets recently, PFSH Medical History Blurred vision, bilateral Hyperlipidemia Back pain Normal pelvic exam High cholesterol Hypertension Diabetes Family History Father Hypertension CVA (cerebral vascular accident), Onset Age: 53 Social History Household Members Other:: , from [place] Housing: [facility] Alcohol intake: current Alcohol intake frequency: holidays/special occasions only Patient Tobacco Use Status: Never used Tobacco e-Cigarette/Vaping Use: Never Used Current occupational status: employed Cognitive needs: No Hearing needs: No Vision needs: No Questionnaire Thrive Questionnaire Date Thrive assessed: 11/15/21 CHELLY-7 AMB Questionnaire CHELLY-7 Date CHELLY - 7 assessed: 11/15/21 Source: Developed by Drs. Vinnie George, Veronique Mayers, Herman Nicole and colleagues, with an educational angel from [employer]. Review of Systems Const All systems reviewed & are unremarkable except as noted in HPI and below Reports no additional complaints Eyes Reports no additional complaints ENT Reports no additional complaints Card Reports no additional complaints Resp Reports no additional complaints GI Reports no additional complaints Reports no additional complaints Physical exam (Primary Care) Vital Signs: Last Vital Signs Pulse 81 09/06/23 13:00 BP 108/68 09/06/23 13:00 Pulse Ox 97 09/06/23 13:00 Oxygen Delivery Method Room Air 09/06/23 13:00 BMI result Body Mass Index 27.1 Tobacco/Smoking Status: Tobacco use Status Tobacco use date assessed 09/06/23 09/06/23 13:31 Patient Tobacco Use Status Never used Tobacco 09/06/23 13:00 e-Cigarette/Vaping Use Never Used 09/06/23 13:00 Thrive Assessment: Date of Thrive Assessment Date Thrive assessed 11/15/21 09/06/23 13:00 Const General: no acute distress HENMT Head: Yes normal to inspection Neck Neck: Yes no lymphadenopathy and Yes supple Resp Effort & Inspection: normal respiratory effort Auscultation: clear to auscultation bilaterally Cardio Rhythm: regular rhythm Heart sounds: S1 normal heart sound present and S2 normal heart sound present GI Inspection: Yes normal to inspection Palpation (GI): Soft to palpation Percussion: Yes normal to percussion Assessment and Plan Assessment & Plan (1) Hypertension: Code(s): I10 - Essential (primary) hypertension Plan: Continue lisinopril (2) Diabetes: Code(s): E11.9 - Type 2 diabetes mellitus without complications Plan: A1c is 6.6, ADA diet increase exercise weight loss discussed with the patient, Ozempic will be increased to 1 mg weekly patient will continue Glyxambi and metformin and will follow-up in 4 months with a fasting labs before (3) Hyperlipidemia: Code(s): E78.5 - Hyperlipidemia, unspecified Plan: Continue statin Orders: Orders Comprehensive [place]. Panel Fast 4 Months E11.9 - Type 2 diabetes mellitus without complications, E78.5 - Hyperlipidemia, unspecified, I10 - Essential (primary) hypertension Microalbumin, Random (w Creat) 4 Months E11.9 - Type 2 diabetes mellitus without complications, E78.5 - Hyperlipidemia, unspecified, I10 - Essential (primary) hypertension Hemoglobin A1c 4 Months E11.9 - Type 2 diabetes mellitus without complications, E78.5 - Hyperlipidemia, unspecified, I10 - Essential (primary) hypertension Medications: New semaglutide (Ozempic) 1 mg (0.75 mL) subcut QWEEK 9 mL 3RF Discontinued semaglutide (Ozempic) Discontinued Reason: Doctor's Order 0.5 mg (0.736 mL) subcut QWEEK 9 mL 4RF Coding Level of Care Code Est Pt Level 4 (86476) Diagnoses Hypertension I10 Diabetes E11.9 Hyperlipidemia E78.5
[2023-09-06 13:00] VITALS: BP 108/68; PULSE 81; O2SAT 97; BMI 27.1
== END 2023-09-06 14:05 | disposition home or self-care (01) ==
PROVIDERS: PCP Internal Medicine; Visit Provider Internal Medicine
DX: I10 Essential (primary) hypertension (principal); E11.9 Type 2 diabetes mellitus without complications; E78.5 Hyperlipidemia, unspecified
CPT/HCPCS: 99214

== ENCOUNTER 2024-02-13 07:26 | Outpatient (REF) | payer OTHER, SELFPAY ==
[2024-02-13 11:01] LABS: Alanine Aminotransferase 29 U/L (0-31); Albumin Level 4.1 g/dL (3.5-5.0); Alkaline Phosphatase 44 U/L (39-117); Anion Gap 13 (12-20); Aspartate Amino Transferase 19 U/L (5-31); Bilirubin Total 0.4 mg/dL (0.0-1.0); Blood Urea Nitrogen 12 mg/dL (9-16); Calcium 9.7 mg/dL (8.4-10.2); Carbon Dioxide 21 mmol/L (22-29); Chloride 108 mmol/L (96-108); Estimated Glomerular Filt Rate > 60; Glucose Fasting 146 mg/dL (60-99); Sodium 138 mmol/L (135-145); Total Protein 6.8 g/dL (6.5-8.0)
[2024-02-13 11:02] LABS: Estimated Average Glucose 146 mg/dL; Hemoglobin A1c % 6.7 % (<6.0)
[2024-02-13 11:12] LABS: Creatinine Urine 95.58 mg/dL; Microalbum/Creatinine Ratio Ur 26.1 ug/mg cr (<30)
== END 2024-02-13 07:27 | disposition home or self-care (01) ==
LOC: HO.HMGCLDS 07:26
PROVIDERS: PCP Internal Medicine; Visit Provider Internal Medicine
DX: I10 Essential (primary) hypertension (principal); E11.9 Type 2 diabetes mellitus without complications; E78.5 Hyperlipidemia, unspecified
CPT/HCPCS: 36415; 80053; 82043; 82570; 83036

== ENCOUNTER 2024-02-16 13:09 | Outpatient (AMB) | payer OTHER, SELFPAY ==
[2024-02-16 13:15] VITALS: BP 118/78; PULSE 76; O2SAT 97; BMI 26.1
--- NOTE | 2024-02-16 13:15 | MHC.PC.OV ---
Vital Signs 02/16/24 13:15 Height 5 ft 6 in Weight 162 lb BMI 26.1 BP 118/78 Blood Pressure Location Lt brachial Position Sitting Pulse 76 Pulse Source Pulse Oximeter Pulse Oximetry (%) 97 Oxygen Delivery Method Room Air Intake Visit Reasons: Check up, diet Intake Note: Pt is here today for 4 months follow up visit on labs. Pt states that she saw [facility] and had some testing done and was told that it was normal but she is still having itchiness and discomfort in her vaginal area. Pt states that the symptoms started after she was put on Ozempic. Allergies No Known Allergies Allergy (Verified 02/16/24 13:16) Medication List - Last Reconciled 02/16/24 by Shelli Guadarrama MD atorvastatin 40 mg PO DAILY bisacodyl (Dulcolax (bisacodyl)) 20 mg (4 x 5 mg) PO ONCE 1 day blood sugar diagnostic (FreeStyle Lite Strips) Test blood sugar once a day empagliflozin-linagliptin 25-5 mg (Glyxambi) 1 tab PO DAILY lancets (FreeStyle Lancets) As directed lisinopril 20 mg PO DAILY metformin ER 1,000 mg (2 x 500 mg) PO BID polyethylene glycol 3350 (Miralax) 238 grams PO ONCE PRN 1 day semaglutide (Ozempic) 2 mg (0.75 mL) subcut QWEEK Tobacco use date assessed: 02/16/24 Dental Screening Dental Screen Date: 02/16/24 Did you have a dental visit in the last 12 months?: Yes Did you have a dental problem in the last 6 months where you did not have access to dental care?: No Was dental information given to patient?: Patient has dentist HPI Check up, diet HPI Details Patient presents for the follow-up of type 2 diabetes hypertension hyperlipidemia.. [facility] Medical History Blurred vision, bilateral Hyperlipidemia Back pain Normal pelvic exam High cholesterol Hypertension Diabetes Surgical History No pertinent past surgical history Family History Father Hypertension CVA (cerebral vascular accident), Onset Age: 53 Social History Household Members Other:: , from [place] Housing: Condominium Alcohol intake: current Alcohol intake frequency: holidays/special occasions only Patient Tobacco Use Status: Never used Tobacco e-Cigarette/Vaping Use: Never Used service: No Current occupational status: employed Cognitive needs: No Hearing needs: No Vision needs: No Questionnaire PHQ-9 Over the last 2 weeks, how often have you been bothered by any of the following problems? 1. Little interest or pleasure in doing things: more than half the days 2. Feeling down, depressed, or hopeless: not at all 3. Trouble falling or staying asleep, or sleeping too much: not at all 4. Feeling tired or having little energy: several days 5. Poor appetite or overeating: not at all 6. Feeling bad about yourself - or that you are a failure or have let yourself or your family down: not at all 7. Trouble concentrating on things, such as reading the newspaper or watching television: more than half the days 8. Moving or speaking so slowly that other people could have noticed. Or the opposite - being so fidgety or restless that you have been moving around a lot more than usual: not at all 9. Thoughts that you would be better off or of hurting yourself in some way: not at all Total score: 5 Depression Screening Interpretation: Negative Depression Screening Done: Yes Source: Developed by Drs. Vinnie George, Veronique Mayers, Herman Nicole and colleagues, with an educational angel from [employer]. Thrive Questionnaire Date Thrive assessed: 02/16/24 I am a: Patient What is your living situation today?: I have a steady place to live Within the past 12 months, did the food you bought not last and you didn't have the money to get more?: Never true Within the past 12 months, did you worry whether your food would run out before you got money to buy more?: Never true Do you have trouble paying for medicines?: No Do you have trouble getting transportation to medical appointments?: No Do you have trouble paying your heating and electricity bill?: No Do you have trouble taking care of your child, family member or friend?: No Do you have trouble with day-to-day activities such as bathing, preparing meals, shopping, managing finances, etc.?: No Are you currently unemployed and looking for a job?: No Are you interested in more education?: No Please select the resources that you would like help with: None THRIVE Score: 0 AUDIT C Alcohol Use Questionnaire (AUDIT-C) 1. How often do you have a drink containing alcohol?: Monthly or less 2. How many drinks containing alcohol do you have on a typical day when you are drinking?: 1 or 2 3. How often do you have six or more drinks on one occasion?: Never Total Score: 1 CHELLY-7 AMB Questionnaire CHELLY-7 Date CHELLY - 7 assessed: 02/16/24 Feeling nervous, anxious, or on edge: 0 = Not at all Not being able to stop or control worryin = Not at all Worrying too much about different things: 0 = Not at all Trouble relaxin = Not at all Being so restless that it is hard to sit still: 0 = Not at all Becoming easily annoyed or irritable: 0 = Not at all Feeling afraid as if something awful might happen: 0 = Not at all Total CHELLY-7 score (0-4 normal; 5-9 mild; 10-14 moderate; 15-21 severe): 0 Source: Developed by Drs. Vinnie George, Veronique Mayers, Herman Nicole and colleagues, with an educational angel from [employer]. Review of Systems Const All systems reviewed & are unremarkable except as noted in HPI and below Eyes Reports no additional complaints ENT Reports no additional complaints Card Reports no additional complaints Resp Reports no additional complaints GI Reports no additional complaints Physical exam (Primary Care) Vital Signs: Last Vital Signs Pulse 76 02/16/24 13:15 BP 118/78 02/16/24 13:15 Pulse Ox 97 02/16/24 13:15 Oxygen Delivery Method Room Air 02/16/24 13:15 BMI result Body Mass Index 26.1 Tobacco/Smoking Status: Tobacco use Status Tobacco use date assessed 02/16/24 02/16/24 13:21 Patient Tobacco Use Status Never used Tobacco 02/16/24 13:21 e-Cigarette/Vaping Use Never Used 02/16/24 13:21 PHQ-9: PHQ-9 Score PHQ-9: Total score 5 02/16/24 13:21 Depression Screening Interpretation: Negative Thrive Assessment: Date of Thrive Assessment Date Thrive assessed 02/16/24 02/16/24 13:21 Const General: no acute distress [facility] General nose exam: Normal external nose present Face and sinus: Yes normal facial exam Eyes General: appearance normal, both eyes and all related structures Resp Effort & Inspection: normal respiratory effort Auscultation: clear to auscultation bilaterally Cardio Rhythm: regular rhythm Heart sounds: S1 normal heart sound present and S2 normal heart sound present GI Inspection: Yes normal to inspection Assessment and Plan Assessment & Plan (1) Diabetes: Code(s): E11.9 - Type 2 diabetes mellitus without complications Plan: A1c is 6.7, ADA diet increase physical activity discussed with the patient increase Ozempic 2 mg a week, continue Glyxambi and metformin, follow-up in 3 months with a fasting labs before (2) Hypertension: Code(s): I10 - Essential (primary) hypertension Plan: Continue lisinopril (3) Hyperlipidemia: Code(s): E78.5 - Hyperlipidemia, unspecified Plan: Continue statin Orders: Orders Hemoglobin A1c 3 Months E11.9 - Type 2 diabetes mellitus without complications, E78.5 - Hyperlipidemia, unspecified, I10 - Essential (primary) hypertension Lipid Panel 3 Months E11.9 - Type 2 diabetes mellitus without complications, E78.5 - Hyperlipidemia, unspecified, I10 - Essential (primary) hypertension Comprehensive [place]. Panel Fast 3 Months E11.9 - Type 2 diabetes mellitus without complications, E78.5 - Hyperlipidemia, unspecified, I10 - Essential (primary) hypertension Medications: New semaglutide (Ozempic) 2 mg (0.75 mL) subcut QWEEK 9 mL 1RF Discontinued semaglutide (Ozempic) Discontinued Reason: Doctor's Order 1 mg (0.75 mL) subcut QWEEK 9 mL 3RF Coding Level of Care Code Est Pt Level 4 (80265) Diagnoses Diabetes E11.9 Hypertension I10 Hyperlipidemia E78.5
== END 2024-02-16 13:46 | disposition home or self-care (01) ==
LOC: HO.HMGC 13:09
PROVIDERS: PCP Internal Medicine; Visit Provider Internal Medicine
DX: E11.9 Type 2 diabetes mellitus without complications (principal); I10 Essential (primary) hypertension; E78.5 Hyperlipidemia, unspecified
CPT/HCPCS: 99214

== ENCOUNTER 2024-06-01 09:19 | Outpatient (REF) | payer OTHER, SELFPAY ==
[2024-06-01 11:35] LABS: Estimated Average Glucose 134 mg/dL; Hemoglobin A1c % 6.3 % (<6.0)
[2024-06-01 11:45] LABS: Alanine Aminotransferase 31 U/L (0-31); Albumin Level 4.2 g/dL (3.5-5.0); Alkaline Phosphatase 40 U/L (39-117); Anion Gap 12 (12-20); Aspartate Amino Transferase 17 U/L (5-31); Bilirubin Total 0.6 mg/dL (0.0-1.0); Blood Urea Nitrogen 12 mg/dL (9-16); Calcium 9.8 mg/dL (8.4-10.2); Carbon Dioxide 20 mmol/L (22-29); Chloride 109 mmol/L (96-108); Cholesterol 177 mg/dL (<200); Estimated Glomerular Filt Rate > 60; Glucose Fasting 129 mg/dL (60-99); HDL Cholesterol 36 mg/dL (>40); LDL Cholesterol Calculated 113 mg/dL (<100); Potassium 4.1 mmol/L (3.3-5.1); Sodium 137 mmol/L (135-145); Total Protein 6.9 g/dL (6.5-8.0); Triglycerides 144 mg/dL (<150)
== END 2024-06-01 09:20 | disposition home or self-care (01) ==
LOC: HO.HMGCLDS 09:19
PROVIDERS: PCP Internal Medicine; Visit Provider Internal Medicine
DX: I10 Essential (primary) hypertension (principal); E11.9 Type 2 diabetes mellitus without complications; E78.5 Hyperlipidemia, unspecified
CPT/HCPCS: 36415; 80053; 80061; 83036

== ENCOUNTER 2024-06-03 13:01 | Outpatient (AMB) | payer OTHER, SELFPAY ==
[2024-06-03 13:05] VITALS: BP 120/76; PULSE 86; O2SAT 98; BMI 25.5
--- NOTE | 2024-06-03 13:05 | A.OFFPC_ITS ---
Vital Signs 06/03/24 13:05 Height 5 ft 6 in Weight 158 lb BMI 25.5 BP 120/76 Blood Pressure Location Lt brachial Position Sitting Pulse 86 Pulse Source Pulse Oximeter Pulse Oximetry (%) 98 Oxygen Delivery Method Room Air Intake Visit Reasons: PE Intake Note: Pt is here today for PE. Allergies No Known Allergies Allergy (Verified 06/03/24 13:13) Medication List - Last Reconciled 06/03/24 by Shelli Guadarrama MD atorvastatin 40 mg PO DAILY bisacodyl (Dulcolax (bisacodyl)) 20 mg (4 x 5 mg) PO ONCE 1 day blood sugar diagnostic (FreeStyle Lite Strips) Test blood sugar once a day empagliflozin-linagliptin 25-5 mg (Glyxambi) 1 tab PO DAILY lancets (FreeStyle Lancets) As directed lisinopril 20 mg PO DAILY metformin ER 1,000 mg (2 x 500 mg) PO BID polyethylene glycol 3350 (Miralax) 238 grams PO ONCE PRN 1 day semaglutide (Ozempic) 2 mg (0.75 mL) subcut QWEEK Tobacco use date assessed: 06/03/24 Dental Screening Dental Screen Date: 02/16/24 HPI PE HPI Details Pt presents for PE. PFSH Medical History Blurred vision, bilateral Hyperlipidemia Back pain Normal pelvic exam High cholesterol Hypertension Diabetes Surgical History No pertinent past surgical history Family History Father Hypertension CVA (cerebral vascular accident), Onset Age: 53 Social History Household Members Other:: , from [place] Housing: Condominium Alcohol intake: current Alcohol intake frequency: holidays/special occasions only Patient Tobacco Use Status: Never used Tobacco e-Cigarette/Vaping Use: Never Used service: No Current occupational status: employed Cognitive needs: No Hearing needs: No Vision needs: No Questionnaire PHQ-9 Over the last 2 weeks, how often have you been bothered by any of the following problems? 1. Little interest or pleasure in doing things: not at all 2. Feeling down, depressed, or hopeless: not at all 3. Trouble falling or staying asleep, or sleeping too much: nearly every day 4. Feeling tired or having little energy: several days 5. Poor appetite or overeating: not at all 6. Feeling bad about yourself - or that you are a failure or have let yourself or your family down: not at all 7. Trouble concentrating on things, such as reading the newspaper or watching television: not at all 8. Moving or speaking so slowly that other people could have noticed. Or the opposite - being so fidgety or restless that you have been moving around a lot more than usual: not at all 9. Thoughts that you would be better off or of hurting yourself in some way: not at all Total score: 4 Depression Screening Interpretation: Negative Depression Screening Done: Yes 07200 - PHQ-9 Billing: Yes Source: Developed by Drs. Vinnie George, Veronique Mayers, Herman Nicole and colleagues, with an educational angel from [employer]. Thrive Questionnaire Date Thrive assessed: 06/03/24 I am a: Patient What is your living situation today?: I have a steady place to live Within the past 12 months, did the food you bought not last and you didn't have the money to get more?: Never true Within the past 12 months, did you worry whether your food would run out before you got money to buy more?: Never true Do you have trouble paying for medicines?: No Do you have trouble getting transportation to medical appointments?: No Do you have trouble paying your heating and electricity bill?: No Do you have trouble taking care of your child, family member or friend?: No Do you have trouble with day-to-day activities such as bathing, preparing meals, shopping, managing finances, etc.?: No Are you currently unemployed and looking for a job?: No Are you interested in more education?: Yes Please select the resources that you would like help with: None Currently or been in a relationship where the following occur: I choose not to answer THRIVE Score: 0 AUDIT C Alcohol Use Questionnaire (AUDIT-C) 1. How often do you have a drink containing alcohol?: Monthly or less 2. How many drinks containing alcohol do you have on a typical day when you are drinking?: 1 or 2 3. How often do you have six or more drinks on one occasion?: Never Total Score: 1 CHELLY-7 AMB Questionnaire CHELLY-7 Date CHELLY - 7 assessed: 06/03/24 Feeling nervous, anxious, or on edge: 0 = Not at all Not being able to stop or control worryin = Not at all Worrying too much about different things: 0 = Not at all Trouble relaxin = Not at all Being so restless that it is hard to sit still: 0 = Not at all Becoming easily annoyed or irritable: 1 = Several days Feeling afraid as if something awful might happen: 0 = Not at all Total CHLELY-7 score (0-4 normal; 5-9 mild; 10-14 moderate; 15-21 severe): 1 Source: Developed by Drs. Vinnie George, Veronique Mayers, Herman Nicole and colleagues, with an educational angel from [employer]. CHELLY-7 Assessment Billing CHELLY-7 Assessment Tool: CHELLY-7 Assessment 83206 Review of Systems Const All systems reviewed & are unremarkable except as noted in HPI and below Eyes Reports no additional complaints ENT Reports no additional complaints Card Reports no additional complaints Resp Reports no additional complaints GI Reports no additional complaints Reports no additional complaints Physical exam (Primary Care) Vital Signs: Last Vital Signs Pulse 86 06/03/24 13:05 BP 120/76 06/03/24 13:05 Pulse Ox 98 06/03/24 13:05 Oxygen Delivery Method Room Air 06/03/24 13:05 BMI result Body Mass Index 25.5 Tobacco/Smoking Status: Tobacco use Status Tobacco use date assessed 06/03/24 06/03/24 13:06 Patient Tobacco Use Status Never used Tobacco 06/03/24 13:06 e-Cigarette/Vaping Use Never Used 06/03/24 13:06 PHQ-9: PHQ-9 Score PHQ-9: Total score 4 06/03/24 13:06 Depression Screening Interpretation: Negative Thrive Assessment: Date of Thrive Assessment Date Thrive assessed 06/03/24 06/03/24 13:06 Currently or been in a relationship where the following occur: I choose not to answer Const General: no acute distress HENMT Head: Yes normal to inspection Ears: hearing grossly normal bilaterally Face and sinus: Yes normal facial exam Throat: Yes posterior oropharynx normal Eyes General: appearance normal, both eyes and all related structures Neck Neck: Yes no lymphadenopathy and Yes supple Resp Effort & Inspection: normal respiratory effort Auscultation: clear to auscultation bilaterally Cardio Rhythm: regular rhythm Heart sounds: S1 normal heart sound present and S2 normal heart sound present GI Inspection: Yes normal to inspection Palpation (GI): Soft to palpation Percussion: Yes normal to percussion Auscultation: normal bowel sounds Assessment and Plan Assessment & Plan (1) Hyperlipidemia: Code(s): E78.5 - Hyperlipidemia, unspecified Plan: cont Atorvastatin (2) Hypertension: Code(s): I10 - Essential (primary) hypertension Plan: cont meds (3) Diabetes: Code(s): E11.9 - Type 2 diabetes mellitus without complications Plan: A1C is 6.3, ADA, increase exercise, cont meds. Follow-up in 3 months with a fasting labs (4) Annual physical exam: Code(s): Z00.00 - Encounter for general adult medical examination without abnormal findings Plan: well balanced diet, regular exercise, pt is up to date with mammogram Orders: Orders Comprehensive [place]. Panel Fast 3 Months E11.9 - Type 2 diabetes mellitus without complications, I10 - Essential (primary) hypertension, Z00.00 - Encounter for general adult medical examination without abnormal findings Lipid Panel 3 Months E11.9 - Type 2 diabetes mellitus without complications, I10 - Essential (primary) hypertension, Z00.00 - Encounter for general adult medical examination without abnormal findings Microalbumin, Random (w Creat) 3 Months E11.9 - Type 2 diabetes mellitus without complications, I10 - Essential (primary) hypertension, Z00.00 - Encounter for general adult medical examination without abnormal findings Hemoglobin A1c 3 Months E11.9 - Type 2 diabetes mellitus without complications, I10 - Essential (primary) hypertension, Z00.00 - Encounter for general adult medical examination without abnormal findings Medications: Refilled semaglutide (Ozempic) 2 mg (0.75 mL) subcut QWEEK 9 mL 1RF lisinopril 20 mg PO DAILY 90 tabs 3RF atorvastatin 40 mg PO DAILY 90 tabs 3RF metformin ER 1,000 mg (2 x 500 mg) PO BID 360 tabs 3RF Coding Level of Care Code Est Pt Prev Care 40-64y(78303) Diagnoses Hyperlipidemia E78.5 Hypertension I10 Diabetes E11.9 Annual physical exam Z00.00 Additional Codes CHELLY-7 Assessment Billing - CHELLY-7 Assessment Tool: CHELLY-7 Assessment 02847 ([id number])
== END 2024-06-03 15:17 | disposition home or self-care (01) ==
PROVIDERS: PCP Internal Medicine; Visit Provider Internal Medicine
DX: Z00.00 Encounter for general adult medical examination without abnormal findings (principal); E78.5 Hyperlipidemia, unspecified; I10 Essential (primary) hypertension; E11.9 Type 2 diabetes mellitus without complications
CPT/HCPCS: 99396

== ENCOUNTER 2024-09-07 09:19 | Outpatient (REF) | payer OTHER, SELFPAY ==
[2024-09-07 11:37] LABS: Estimated Average Glucose 134 mg/dL; Hemoglobin A1C 167.3633 umol/L; Hemoglobin A1c % 6.3 % (<6.0); Total Hemoglobin (HGBA1C) 3687.0644 umol/L
[2024-09-07 11:57] LABS: Alanine Aminotransferase 30 U/L (0-31); Alkaline Phosphatase 44 U/L (39-117); Anion Gap 12 (12-20); Aspartate Amino Transferase 23 U/L (5-31); Bilirubin Total 0.6 mg/dL (0.0-1.0); Blood Urea Nitrogen 15 mg/dL (9-16); Calcium 9.2 mg/dL (8.4-10.2); Carbon Dioxide 21 mmol/L (22-29); Chloride 109 mmol/L (96-108); Cholesterol 136 mg/dL (<200); Estimated Glomerular Filt Rate > 60; Glucose Fasting 128 mg/dL (60-99); HDL Cholesterol 31 mg/dL (>40); LDL Cholesterol Calculated 87 mg/dL (<100); Potassium 3.7 mmol/L (3.3-5.1); Sodium 138 mmol/L (135-145); Total Protein 6.6 g/dL (6.5-8.0); Triglycerides 90 mg/dL (<150)
[2024-09-07 12:24] LABS: Creatinine Urine 154.83 mg/dL; Microalbum/Creatinine Ratio Ur 8.3 ug/mg cr (<30)
== END 2024-09-07 09:20 | disposition home or self-care (01) ==
LOC: HO.HMGCLDS 09:19
PROVIDERS: PCP Internal Medicine; Visit Provider Internal Medicine
DX: Z00.00 Encounter for general adult medical examination without abnormal findings (principal); I10 Essential (primary) hypertension; E11.9 Type 2 diabetes mellitus without complications
CPT/HCPCS: 36415; 80053; 80061; 82043; 82570; 83036

== ENCOUNTER 2024-09-09 13:31 | Outpatient (AMB) | payer OTHER, SELFPAY ==
[2024-09-09 13:42] VITALS: BP 98/66; PULSE 84; BMI 25.2
--- NOTE | 2024-09-09 13:42 | A.OFFPC_ITS ---
Vital Signs 09/09/24 13:42 Height 5 ft 6 in Weight 156 lb BMI 25.2 BP 98/66 Blood Pressure Location Lt brachial Position Sitting Pulse 84 Pulse Source Pulse Oximeter Intake Visit Reasons: Medication review Intake Note: Pt is here today for a follow up visit on labs. Allergies No Known Allergies Allergy (Verified 09/09/24 13:42) Medication List - Last Reconciled 09/09/24 by Shelli Guadarrama MD atorvastatin 40 mg PO DAILY bisacodyl (Dulcolax (bisacodyl)) 20 mg (4 x 5 mg) PO ONCE 1 day blood sugar diagnostic (FreeStyle Lite Strips) Test blood sugar once a day empagliflozin-linagliptin 25-5 mg (Glyxambi) 1 tab PO DAILY lancets (FreeStyle Lancets) As directed lisinopril 20 mg PO DAILY lisinopril 10 mg PO DAILY metformin ER 1,000 mg (2 x 500 mg) PO BID polyethylene glycol 3350 (Miralax) 238 grams PO ONCE PRN 1 day semaglutide (Ozempic) 2 mg (0.75 mL) subcut QWEEK Tobacco use date assessed: 09/09/24 Dental Screening Dental Screen Date: 09/09/24 Did you have a dental visit in the last 12 months?: Yes Did you have a dental problem in the last 6 months where you did not have access to dental care?: No Was dental information given to patient?: Patient has dentist HPI Medication review HPI Details Pt presents for DM 2, HTN, hyperlipid, stable on meds. [facility] Medical History Blurred vision, bilateral Hyperlipidemia Back pain Normal pelvic exam High cholesterol Hypertension Diabetes Surgical History No pertinent past surgical history Family History Father Hypertension CVA (cerebral vascular accident), Onset Age: 53 Social History Household Members Other:: , from [place] Housing: Condominium Alcohol intake: current Alcohol intake frequency: holidays/special occasions only Patient Tobacco Use Status: Never used Tobacco e-Cigarette/Vaping Use: Never Used service: No Current occupational status: employed Cognitive needs: No Hearing needs: No Vision needs: No Questionnaire Thrive Questionnaire Date Thrive assessed: 06/03/24 I am a: Patient What is your living situation today?: I have a steady place to live Within the past 12 months, did the food you bought not last and you didn't have the money to get more?: Never true Within the past 12 months, did you worry whether your food would run out before you got money to buy more?: Never true Do you have trouble paying for medicines?: No Do you have trouble getting transportation to medical appointments?: No Do you have trouble paying your heating and electricity bill?: No Do you have trouble taking care of your child, family member or friend?: No Do you have trouble with day-to-day activities such as bathing, preparing meals, shopping, managing finances, etc.?: No Are you currently unemployed and looking for a job?: No Are you interested in more education?: Yes Please select the resources that you would like help with: None Currently or been in a relationship where the following occur: I choose not to answer THRIVE Score: 0 CHELLY-7 AMB Questionnaire CHELLY-7 Date CHELLY - 7 assessed: 06/03/24 Source: Developed by Drs. Vinnie George, Veronique Mayers, Herman Nicole and colleagues, with an educational angel from [employer]. Review of Systems Const All systems reviewed & are unremarkable except as noted in HPI and below Reports no additional complaints Eyes Reports no additional complaints ENT Reports no additional complaints Card Reports no additional complaints Resp Reports no additional complaints GI Reports no additional complaints Reports no additional complaints Physical exam (Primary Care) Vital Signs: Last Vital Signs Pulse 84 09/09/24 13:42 BP 98/66 09/09/24 13:42 BMI result Body Mass Index 25.2 Tobacco/Smoking Status: Tobacco use Status Tobacco use date assessed 09/09/24 09/09/24 13:48 Patient Tobacco Use Status Never used Tobacco 09/09/24 13:44 e-Cigarette/Vaping Use Never Used 09/09/24 13:44 Thrive Assessment: Date of Thrive Assessment Date Thrive assessed 06/03/24 09/09/24 13:44 Currently or been in a relationship where the following occur: I choose not to answer Const General: well developed [facility] Head: Yes normal to inspection Ears: hearing grossly normal bilaterally Face and sinus: Yes normal facial exam Mouth: Normal oral and palatal mucosa present Throat: Yes posterior oropharynx normal Eyes General: appearance normal, both eyes and all related structures Neck Neck: Yes no lymphadenopathy and Yes supple Resp Effort & Inspection: normal respiratory effort Auscultation: clear to auscultation bilaterally Cardio Rhythm: regular rhythm Heart sounds: S1 normal heart sound present and S2 normal heart sound present GI Inspection: Yes normal to inspection Palpation (GI): Soft to palpation Percussion: Yes normal to percussion Auscultation: normal bowel sounds Coding Level of Care Code Est Pt Level 4 (49487) Diagnoses Diabetes E11.9 Hypertension I10 Hyperlipidemia E78.5 Assessment & Plan Assessment & Plan (1) Diabetes: Code(s): E11.9 - Type 2 diabetes mellitus without complications Category: Medical Plan: A1c is 6.3, continue current medications ADA diet regular exercise follow-up in 3 months (2) Hypertension: Code(s): I10 - Essential (primary) hypertension Category: Medical Plan: Blood pressure is low and lisinopril will be decreased to 10 mg a day (3) Hyperlipidemia: Code(s): E78.5 - Hyperlipidemia, unspecified Category: Medical Plan: Continue statin Orders: Orders Comprehensive [place]. Panel Fast 3 Months E11.9 - Type 2 diabetes mellitus without complications, I10 - Essential (primary) hypertension, Z00.00 - Encounter for general adult medical examination without abnormal findings Lipid Panel 3 Months E11.9 - Type 2 diabetes mellitus without complications, I10 - Essential (primary) hypertension, Z00.00 - Encounter for general adult medical examination without abnormal findings Hemoglobin A1c 3 Months E11.9 - Type 2 diabetes mellitus without complications, I10 - Essential (primary) hypertension, Z00.00 - Encounter for general adult medical examination without abnormal findings Microalbumin, Random (w Creat) 3 Months E11.9 - Type 2 diabetes mellitus without complications, I10 - Essential (primary) hypertension, Z00.00 - Encounter for general adult medical examination without abnormal findings Medications: New lisinopril 10 mg PO DAILY 90 tabs 2RF Discontinued lisinopril Discontinued Reason: Doctor's Order 20 mg PO DAILY 90 tabs 3RF
== END 2024-09-09 14:05 | disposition home or self-care (01) ==
PROVIDERS: PCP Internal Medicine; Visit Provider Internal Medicine
DX: E11.9 Type 2 diabetes mellitus without complications (principal); I10 Essential (primary) hypertension; E78.5 Hyperlipidemia, unspecified

== ENCOUNTER → 2024-09-09 13:31 | Outpatient (BNVA) | payer OTHER, SELFPAY | PROVIDERS: PCP Internal Medicine; Visit Provider Internal Medicine | DX: E11.9 Type 2 diabetes mellitus without complications (principal); I10 Essential (primary) hypertension; E78.5 Hyperlipidemia, unspecified | CPT/HCPCS: 99212 ==

== ENCOUNTER 2024-12-28 08:25 | Outpatient (REF) | payer OTHER, SELFPAY ==
--- OUTSIDE RECORDS SUMMARY | 2024-12-28 08:28 | XMS_ITS | Clinical Summary ---
Author Organization [employer] Address [address] [place] [address] Care Team Providers Care Crisis Intervention Counselor Name Role Phone Anna Ortiz LLShante Unavailable [phone] PcpYazan Unassigned Primary Care Provider U navailable Allergies Active Allergy Reactions Criticality Noted Date Comments Losartan 02/02/2017 Note: edema of feet and hands, constipation Venlafaxine Nausea And Vomiting 02/06/2020 Immunizations Name Administration Dates Next Due Influenza injectable quadriv alent IIV4 with preservative 06/25/2018,08/07/2017 Moderna Covid-19 Vaccine 12+ 01/15/2021,12/19/19 21 Social History Tobacco Use Types Packs/Day Years Used Date Smoking Tobacco: Never Assessed Comments Unknown Sex and Gender Information Value Date Recorded Sex Assigned at Not on file Legal Sex Female 6:22 PM EDT Gender Identity Female 07/22/2022 6:22 PM EDT Sexual Orientation Straight 07/22/2022 6: 22 PM EDT Last Filed Vital Signs Vital Sign Reading Time Taken Comments Blood Pressure 110/72 01/20/2021 2:02 PM EDT Pulse 88 01/20/2021 2:02 PM EDT Temperature - - Respiratory Rate - - Oxygen Saturation 98% 01/20/2021 2:02 PM EDT Inhaled Oxygen Concentration - - Weight 84.4 kg (186 lb) 01/20/2021 2:02 PM EDT Height 172.7 cm (5' 8 ) 01/20/2021 2:02 PM EDT Body Mass Index 28.28 01/20/2021 2:02 PM EDT Plan of Treatment Health Maintenance Due Date Last Done Comments CT Colonography 1975 Colonoscopy 1975 Colorectal Cancer Screening 1975 Depression Screening 1975 FIT DNA/Cologuard 1975 FIT 1975 FOBT 1975 Sigmoidoscopy 1975 Alcohol/Substance Use Screening 1987 Tobacco Screening 1987 Family Planning (PISQ) 1990 DTaP/Tdap/Td Vaccines (1 - Tdap) 1994 Hepatitis B Vaccines (1 of 3 - 19+ 3-dose series) 1994 Pap Smear 1996 Cervical Cancer Screening 2005 HPV/Cotest 2005 Mammogram 08/28/2019 08/28/2017 COVID-19 Vaccine (3 - 2023-2 5 season) 2024 01/15/2021, 12/18/2020 Influenza Vaccine (#1) 2024 8, 08/07/2017 Zoster Vaccines (1 of 2) 2025 RSV Patients and Patients Aged 60 years or older (1 - 1-dose 75+ series) 2050 HIB Vaccines Aged Out No longer eligi ble based on patient's age to complete this topic HPV Vaccines Aged Out No longer eligi ble based on patient's age to complete this topic Hepatitis A Vaccines Aged Out No long er eligible based on patient's age to complete this topic IPV Vaccines Aged Out No longer eligi ble based on patient's age to complete this topic Meningococcal Vaccine Aged Out No roya rocio eligible based on patient's age to complete this topic Pneumococcal Vaccine: Pediatrics (0 to 5 Years) and At-Risk Patients (6 to 49) Years) Aged Out No longer eligible b ased on patient's age to complete this topic RSV under 20 months Aged Out No longe r eligible based on patient's age to complete this topic Rotavirus Vaccines Aged Out No longer eligible based on patient's age to complete this topic Procedures Procedure Name Priority Date/Time Associated Diagnosis Comments MAMMOGRAM GENERIC Routine 08/28/2017 12: 00 AM EST from Last 3 Months or Most Recently Relevant to Health Maintenance Results * Mammogram (08/28/2017 12:00 AM EST) Anatomical Region Laterality Modality Breast Bilateral Mammography 08/28/2017 Narrative 08/28/2017 12:00 AM EST Refer to the Notes tab for result details Legacy Procedure: Mammogram Procedure Note Provider, MD Carolee - 12/17/2022 Refer to the Notes tab for result details Legacy Procedure: Mammogram us Historical Provider MD PANTOJA BI PROCEDURES Final R esult from Last 3 Months or Most Recently Relevant to Health Maintenance Care Teams Crisis Intervention Counselor Relationship Specialty Start Date End Date PcpYazan Unassigned PCP - General Family Medicine 01/03/23 Anna Ortiz LLD [address] [place] [id number] Dentist 07/22/22
[2024-12-28 12:00] LABS: Estimated Average Glucose 140 mg/dL; Hemoglobin A1C 183.2272 umol/L; Hemoglobin A1c % 6.5 % (<6.0); Total Hemoglobin (HGBA1C) 3829.7855 umol/L
[2024-12-28 12:11] LABS: Alanine Aminotransferase 27 U/L (0-31); Alkaline Phosphatase 42 U/L (39-117); Anion Gap 10 (12-20); Aspartate Amino Transferase 26 U/L (5-31); Bilirubin Total 0.5 mg/dL (0.0-1.0); Blood Urea Nitrogen 14 mg/dL (9-16); Carbon Dioxide 20 mmol/L (22-29); Chloride 112 mmol/L (96-108); Cholesterol 147 mg/dL (<200); Estimated Glomerular Filt Rate > 60; Glucose Fasting 130 mg/dL (60-99); HDL Cholesterol 31 mg/dL (>40); LDL Cholesterol Calculated 96 mg/dL (<100); Potassium 3.7 mmol/L (3.3-5.1); Sodium 138 mmol/L (135-145); Total Protein 6.6 g/dL (6.5-8.0); Triglycerides 104 mg/dL (<150)
[2024-12-28 12:18] LABS: Creatinine Urine 97.09 mg/dL; Microalbum/Creatinine Ratio Ur 6.1 ug/mg cr (<30)
== END 2024-12-28 08:26 | disposition home or self-care (01) ==
LOC: HO.HMGCLDS 08:25
PROVIDERS: PCP Internal Medicine; Visit Provider Internal Medicine
DX: Z00.00 Encounter for general adult medical examination without abnormal findings (principal); I10 Essential (primary) hypertension; E11.9 Type 2 diabetes mellitus without complications
CPT/HCPCS: 36415; 80053; 80061; 82043; 82570; 83036

== ENCOUNTER 2025-01-27 10:43 | Outpatient (AMB) | payer OTHER, SELFPAY ==
[2025-01-27 10:44] VITALS: BP 100/62; PULSE 89; RESP 18; TEMP 36.8; O2SAT 98; BMI 25.5
--- NOTE | 2025-01-27 10:44 | MHC.PC.OV ---
Vital Signs 01/27/25 10:44 Height 5 ft 6 in Weight 158 lb BMI 25.5 BP 100/62 Blood Pressure Location Rt brachial Position Sitting Respiration 18 Pulse 89 Pulse Source Pulse Oximeter Temp 98.3 F Temp Source Oral Pulse Oximetry (%) 98 Oxygen Delivery Method Room Air Intake Visit Reasons: 3 months Follow up/SEE OA PCP not listed Intake Note: Pt is here today for 3 months follow up visit. Allergies No Known Allergies Allergy (Verified 01/27/25 10:45) Medication List - Last Reconciled 01/27/25 by Shelli Guadarrama MD atorvastatin 40 mg PO DAILY bisacodyl (Dulcolax (bisacodyl)) 20 mg (4 x 5 mg) PO ONCE 1 day bisacodyl (Dulcolax (bisacodyl)) 20 mg (4 x 5 mg) PO ONCE 1 day blood sugar diagnostic (FreeStyle Lite Strips) Test blood sugar once a day empagliflozin-linagliptin 25-5 mg (Glyxambi) 1 tab PO DAILY lancets (FreeStyle Lancets) As directed lisinopril 10 mg PO DAILY metformin ER 1,000 mg (2 x 500 mg) PO BID polyethylene glycol 3350 (Miralax) 238 grams PO ONCE 1 day polyethylene glycol 3350 (Miralax) 238 grams PO ONCE PRN 1 day semaglutide (Ozempic) 2 mg (0.75 mL) subcut QWEEK Tobacco use date assessed: 01/27/25 Dental Screening Dental Screen Date: 01/27/25 Did you have a dental visit in the last 12 months?: Yes Did you have a dental problem in the last 6 months where you did not have access to dental care?: No Was dental information given to patient?: Patient has dentist HPI 3 months Follow up/SEE OA PCP not listed HPI Details Pt presents for f/u DM 2, hyperlipid, HTN, stable on meds. [facility] Medical History Blurred vision, bilateral Hyperlipidemia Back pain Normal pelvic exam High cholesterol Hypertension Diabetes Surgical History No pertinent past surgical history Family History Father Hypertension CVA (cerebral vascular accident), Onset Age: 53 Social History Household Members Other:: , from [place] Housing: Condominium Alcohol intake: current Alcohol intake frequency: holidays/special occasions only Patient Tobacco Use Status: Never used Tobacco e-Cigarette/Vaping Use: Never Used service: No Current occupational status: employed Cognitive needs: No Hearing needs: No Vision needs: No Questionnaire PHQ-9 Over the last 2 weeks, how often have you been bothered by any of the following problems? 1. Little interest or pleasure in doing things: not at all 2. Feeling down, depressed, or hopeless: not at all 3. Trouble falling or staying asleep, or sleeping too much: more than half the days 4. Feeling tired or having little energy: nearly every day 5. Poor appetite or overeating: not at all 6. Feeling bad about yourself - or that you are a failure or have let yourself or your family down: not at all 7. Trouble concentrating on things, such as reading the newspaper or watching television: not at all 8. Moving or speaking so slowly that other people could have noticed. Or the opposite - being so fidgety or restless that you have been moving around a lot more than usual: not at all 9. Thoughts that you would be better off or of hurting yourself in some way: not at all Total score: 5 Depression Screening Interpretation: Negative Depression Screening Done: Yes 66913 - PHQ-9 Billing: Yes Source: Developed by Drs. Vinnie George, Veronique Mayers, Herman Nicole and colleagues, with an educational angel from [employer]. Thrive Questionnaire Date Thrive assessed: 06/03/24 I am a: Patient What is your living situation today?: I have a steady place to live Within the past 12 months, did the food you bought not last and you didn't have the money to get more?: Never true Within the past 12 months, did you worry whether your food would run out before you got money to buy more?: Never true Do you have trouble paying for medicines?: No Do you have trouble getting transportation to medical appointments?: No Do you have trouble paying your heating and electricity bill?: No Do you have trouble taking care of your child, family member or friend?: No Do you have trouble with day-to-day activities such as bathing, preparing meals, shopping, managing finances, etc.?: No Are you currently unemployed and looking for a job?: No Are you interested in more education?: Yes Please select the resources that you would like help with: None Currently or been in a relationship where the following occur: No concerns reported THRIVE Score: 0 AUDIT C Alcohol Use Questionnaire (AUDIT-C) 1. How often do you have a drink containing alcohol?: Monthly or less 2. How many drinks containing alcohol do you have on a typical day when you are drinking?: 1 or 2 3. How often do you have six or more drinks on one occasion?: Never Total Score: 1 CHELLY-7 AMB Questionnaire CHELLY-7 Date CHELLY - 7 assessed: 06/03/24 Feeling nervous, anxious, or on edge: 0 = Not at all Not being able to stop or control worryin = Not at all Worrying too much about different things: 0 = Not at all Trouble relaxin = Nearly every day Being so restless that it is hard to sit still: 0 = Not at all Becoming easily annoyed or irritable: 3 = Nearly every day Feeling afraid as if something awful might happen: 0 = Not at all Total CHELLY-7 score (0-4 normal; 5-9 mild; 10-14 moderate; 15-21 severe): 6 Source: Developed by Drs. Vinnie eGorge, Veronique Mayers, Herman Nicole and colleagues, with an educational angel from [employer]. Review of Systems Const All systems reviewed & are unremarkable except as noted in HPI and below Reports no additional complaints Eyes Reports no additional complaints ENT Reports no additional complaints Card Reports no additional complaints Resp Reports no additional complaints GI Reports no additional complaints Physical exam (Primary Care) Vital Signs: Last Vital Signs Temp 98.3 F 01/27/25 10:44 Pulse 89 01/27/25 10:44 Resp 18 01/27/25 10:44 BP 100/62 01/27/25 10:44 Pulse Ox 98 01/27/25 10:44 Oxygen Delivery Method Room Air 01/27/25 10:44 BMI result Body Mass Index 25.5 Tobacco/Smoking Status: Tobacco use Status Tobacco use date assessed 01/27/25 01/27/25 10:46 Patient Tobacco Use Status Never used Tobacco 01/27/25 10:46 e-Cigarette/Vaping Use Never Used 01/27/25 10:45 PHQ-9: PHQ-9 Score PHQ-9: Total score 5 01/27/25 11:16 Depression Screening Interpretation: Negative Thrive Assessment: Date of Thrive Assessment Date Thrive assessed 06/03/24 01/27/25 10:45 Currently or been in a relationship where the following occur: No concerns reported Const General: no acute distress HENMT Head: Yes normal to inspection Face and sinus: Yes normal facial exam Eyes General: appearance normal, both eyes and all related structures Neck Neck: Yes no lymphadenopathy and Yes supple Resp Effort & Inspection: normal respiratory effort Auscultation: clear to auscultation bilaterally Cardio Rhythm: regular rhythm Heart sounds: S1 normal heart sound present and S2 normal heart sound present GI Inspection: Yes normal to inspection Palpation (GI): Soft to palpation Percussion: Yes normal to percussion Coding Level of Care Code Est Pt Level 4 (35905) Diagnoses Diabetes E11.9 Hypertension I10 Hyperlipidemia E78.5 Additional Codes PHQ-9 - 99244 - PHQ-9 Billing: Yes ([id number]) Assessment & Plan Assessment & Plan (1) Diabetes: Code(s): E11.9 - Type 2 diabetes mellitus without complications Category: Medical Plan: A1c is 6.5. ADA diet increase exercise weight loss discussed with the patient continue current medications. Patient will check with her insurance coverage for [facility] (2) Hypertension: Code(s): I10 - Essential (primary) hypertension Category: Medical Plan: Continue lisinopril (3) Hyperlipidemia: Code(s): E78.5 - Hyperlipidemia, unspecified Category: Medical Plan: Continue statin and return in 4 months with a fasting labs before Orders: Orders Comprehensive [place]. Panel Fast 4 Months E11.9 - Type 2 diabetes mellitus without complications, E78.5 - Hyperlipidemia, unspecified, I10 - Essential (primary) hypertension Complete Blood Count Auto Diff 4 Months E11.9 - Type 2 diabetes mellitus without complications, E78.5 - Hyperlipidemia, unspecified, I10 - Essential (primary) hypertension Lipid Panel 4 Months E11.9 - Type 2 diabetes mellitus without complications, E78.5 - Hyperlipidemia, unspecified, I10 - Essential (primary) hypertension Hemoglobin A1c 4 Months E11.9 - Type 2 diabetes mellitus without complications, E78.5 - Hyperlipidemia, unspecified, I10 - Essential (primary) hypertension Microalbumin, Random (w Creat) 4 Months E11.9 - Type 2 diabetes mellitus without complications, E78.5 - Hyperlipidemia, unspecified, I10 - Essential (primary) hypertension TSH reflex Free T4 4 Months E11.9 - Type 2 diabetes mellitus without complications, E78.5 - Hyperlipidemia, unspecified, I10 - Essential (primary) hypertension Medications: Refilled atorvastatin 40 mg PO DAILY 90 tabs 3RF empagliflozin-linagliptin 25-5 mg (Glyxambi) 1 tab PO DAILY 90 tabs 3RF lisinopril 10 mg PO DAILY 90 tabs 3RF metformin ER 1,000 mg (2 x 500 mg) PO BID 360 tabs 3RF
--- OUTSIDE RECORDS SUMMARY | 2025-01-27 12:11 | XMS_ITS | Clinical Summary ---
Author Organization [employer] Address [address] [place] [address] Care Team Providers Care Melter Helper Name Role Phone Anna Ortiz LLShante Unavailable [phone] PcpYazan Unassigned Primary Care Provider U navailable [...] Recently Relevant to Health Maintenance Care Teams Melter Helper Relationship Specialty Start Date End Date PcpYazan Unassigned PCP - General Family Medicine 01/03/23 Anna Ortiz LLD [address] [place] [id number] Dentist 07/22/22
== END 2025-01-27 15:44 | disposition home or self-care (01) ==
LOC: HO.HMCC 10:44
PROVIDERS: PCP Internal Medicine; Visit Provider Internal Medicine
DX: E11.9 Type 2 diabetes mellitus without complications (principal); I10 Essential (primary) hypertension; E78.5 Hyperlipidemia, unspecified

== ENCOUNTER → 2025-01-27 10:43 | Outpatient (BNVA) | payer OTHER, SELFPAY | PROVIDERS: PCP Internal Medicine; Visit Provider Internal Medicine | DX: E11.9 Type 2 diabetes mellitus without complications (principal); I10 Essential (primary) hypertension; E78.5 Hyperlipidemia, unspecified; Z79.899 Other long term (current) drug therapy | CPT/HCPCS: 96127; 99212 ==

== ENCOUNTER 2025-04-07 09:02 | Day surgery (SDC) | payer OTHER, SELFPAY ==
--- OUTSIDE RECORDS SUMMARY | 2025-03-05 10:22 | XMS_ITS | Clinical Summary ---
Author Organization [employer] Address [address] [place] [address] Care Team Providers Care Plastic Battery Assembler Name Role Phone Anna Ortiz LLShante Unavailable [phone] PcpYazan Unassigned Primary Care Provider U navailable Allergies Active Allergy Reactions Criticality Noted Date Comments Losartan 02/02/2017 Note: edema of feet and hands, constipation Venlafaxine Nausea And Vomiting 02/06/2020 Immunizations Immunization Administration Dates Next Due Influenza injectable quadriv [...] 1975 FIT 1975 FOBT 1975 Sigmoidoscopy 1975 Disability Screening 1975 Alcohol/Substance Use Screening 1987 Tobacco Screening 1987 Family Planning (PISQ) 1990 DTaP/Tdap/Td Vaccines (1 - Tdap) 1994 Hepatitis B Vaccines (1 of 3 - 19+ 3-dose series) 1994 Pap Smear 1996 Cervical Cancer Screening 2005 HPV/Cotest 2005 Mammogram 08/28/2019 08/28/2017 COVID-19 Vaccine (3 - 2023-2 5 season) 2024 01/15/2021, 12/18/2020 Influenza Vaccine (Season Ended) 2025 06/25/2018, 08/07/2017 Zoster Vaccines (1 of 2) 2025 [...] patient's age to complete this topic Meningococcal B Vaccine Aged Out No l onger eligible based on patient's age to complete [...] result details Legacy Procedure: Mammogram Procedure Note ProviderCarolee MD - 12/17/2022 Refer to the Notes tab for result details Legacy Procedure: Mammogram Historical Provider MD PANTOJA BI PROCEDURES Final R esult from Last 3 Months or Most Recently Relevant to Health Maintenance Care Teams Plastic Battery Assembler Relationship Specialty Start Date End Date Yazan Sullivan Unassigned PCP - General Family Medicine 01/03/23 Anna Ortiz LLD [address] [place] [id number] Dentist 07/22/22
--- NOTE | 2025-04-04 09:58 | HO.ANESPROP2 ---
Documented by User: Ana Oewns NP 04/04/25 09:59 HPI - Anesthesia Eval Consult details Narrative: 49yo F for Colonoscopy Anesthesia Pre-Procedure Meds Is the patient on any of the following meds?: GLP1/DPP4 and SGLT2 Inhib PMFSH Active Problems Active Problems: All Active Problems Encounter for screening colonoscopy (Acute) Annual physical exam (Acute) Lower back pain (Acute) Vaginitis (Acute) Blurred vision, bilateral (Acute) Hyperlipidemia (Acute) Back pain (Acute) Normal pelvic exam (Acute) Hypertension (Acute) Diabetes (Acute) Upper respiratory tract infection (Acute) Past Medical History Medical History Blurred vision, bilateral Hyperlipidemia Back pain Normal pelvic exam High cholesterol Hypertension Diabetes Family History Family History Father Hypertension CVA (cerebral vascular accident), Onset Age: 53 Surgical History Surgical History (Updated 04/07/25 @ 09:46 by Ania Hinojosa RN) Hx of abdominoplasty History of esophagogastroduodenoscopy (EGD) No pertinent past surgical history Social History Social History Household Members Other:: , from [place] [facility] Alcohol intake: current Alcohol intake frequency: holidays/special occasions only Patient Tobacco Use Status: Former Tobacco user e-Cigarette/Vaping Use: Never Used service: No Current occupational status: employed Cognitive needs: No Hearing needs: No Vision needs: No Meds Allergies Allergy/AdvReac Type Severity Reaction Status Date / Time No Known Allergies Allergy Verified 04/07/25 10:12 Home Medications ?Medication ?Instructions ?Recorded ?Confirmed ?Last Taken ?Type lancets 28 gauge (FreeStyle #100 ea 07/27/21 04/07/25 Unknown History Lancets) Assessment and Plan Assessment Anesthesia Assessment: Chart Reviewed Documented by User: Kem Benavidez MD 04/07/25 11:49 [facility] Past Medical History Medical History Blurred vision, bilateral Hyperlipidemia Back pain Normal pelvic exam High cholesterol Hypertension Diabetes Patient : No Family History Family History Father Hypertension CVA (cerebral vascular accident), Onset Age: 53 Family history of problems with anesthesia: No Surgical History Surgical History (Updated 04/07/25 @ 09:46 by Ania Hinojosa RN) Hx of abdominoplasty History of esophagogastroduodenoscopy (EGD) No pertinent past surgical history History of Problems with Anesthesia: No Social History Social History Household Members Other:: , from [facility] Housing: [facility] Alcohol intake: current Alcohol intake frequency: holidays/special occasions only Patient Tobacco Use Status: Former Tobacco user e-Cigarette/Vaping Use: Never Used service: No Current occupational status: employed Cognitive needs: No Hearing needs: No Vision needs: No Meds Allergies Allergy/AdvReac Type Severity Reaction Status Date / Time No Known Allergies Allergy Verified 04/07/25 10:12 Home Medications ?Medication ?Instructions ?Recorded ?Confirmed ?Last Taken ?Type lancets 28 gauge (FreeStyle #100 ea 07/27/21 04/07/25 Unknown History Lancets) Exam Airway Mallampati Class: II TM Dist: >3cm Neck ROM: Full Loose/Missing/Broken Teeth: No Heart: ok Lungs: ok Assessment and Plan Assessment Anesthesia Assessment: Anesthesia Plan Discussed Final Anesthetic Review Family History of Problems with Anesthesia: No History of Problems with Anesthesia: No NPO: Yes ASA Class: II Final Preanesthetic Review: No Changes in Pt Med Stat, Meds/Allgs Chart Reviewed, Consent Obtained/Reviewed and Anes Risks/Benef Reviewed Patient Risk: Low Procedure Risk: Low Anesthetic Plan Anesthetic Plan: MAC: and Agree w/ Assess. and Plan Disposition: Standard PACU
[2025-04-07 09:55] VITALS: BMI 23.3
[2025-04-07 10:04] LABS: UPreg QC Valid YES
[2025-04-07 10:05] VITALS: BP 116/93; PULSE 58; RESP 15; TEMP 36.4; O2SAT 99
[2025-04-07] MEDS: Lactated Ringers 1,000 ML 100 ML IVCONT (10:12)
[2025-04-07 10:18] LABS: Glucose, Whole Blood 114 mg/dL (60-115)
--- NOTE | 2025-04-07 10:30 | MHC.SHP ---
Pre-Procedural Eval Section A - 24 Hr Update-Section A only Date of Service: 04/07/25 The patient is an INPATIENT: No The patient has been examined within 24 hours of the surgical procedure. The History & Physical has been completed within 30 days and I have reviewed it.: No Section B - Complete if H&P > 30 days Chief Complaint: Colon cancer screening Relevant Family History (Specify if Yes): No Relevant Social History: None Present Medications: see Short Stay Collaborative assessment Medical History: Significant History (Blurred vision, bilateral Hyperlipidemia Back pain Normal pelvic exam High cholesterol Hypertension Diabetes) History of Previous Operations: No relevant previous surgery Allergies: Allergies Allergy/AdvReac Type Severity Reaction Status Date / Time No Known Allergies Allergy Verified 04/07/25 10:12 Review of Systems Sugical H&P ROS: Negative: Constitution, Cardiovascular, Respiratory and Gastrointestinal Exam Surgical H&P Exam: Normal: Heart, Normal: Lungs, Normal: Extremities and Normal: Abdomen Plan Diagnosis/Plan: Unchanged I have reviewed the history and physical and performed a pertinent physical examination on my patient. No changes have occurred unless specified. Time Spent With Patient Time: Total time managing care of this patient today ____ minutes.
--- NOTE | 2025-04-07 12:21 | HO.OPN-COLON ---
Colonoscopy Operative Note Operative Note Date of Service: 04/07/25 Narrative: COLONOSCOPY TILL CECUM WITH SNARE POLYPECTOMY Pre-op diagnosis: Colon cancer screening (first colon). Post-op diagnosis:? Colon polyps, Diverticulosis, hemorrhoids Endoscopist:? Roberta Rogers MD Anesthesia:?MAC Consent: Indications for the procedure and potential complications of bleeding, perforation, reaction to medications and missed diagnosis were discussed with the patient and informed consent was obtained. Instrument: Olympus PCF H 190 L variable stiffness pediatric colonoscope Monitoring: Vital signs and clinical assessment, intermittent blood pressure monitoring, continuous EKG monitoring, Pulse oximetry and Carbon Dioxide monitoring were done throughout the procedure. Please see anesthesia flowsheet. Colon withdrawl time was 20 minutes. Procedure: The patient was placed in the left lateral decubitis position and pre-procedure medications were administered. After a digital rectal examination of the ano-rectum, the video colonoscope was inserted into the rectum and advanced through the colon to the cecum. The colonoscope was slowly withdrawn in a retrograde panoramic fashion and the colon mucosa was carefully examined including a retroflexed view of the rectum. Findings and interventions are described below. Procedure Difficulty: Colon was long and tortuous and there was some loop formation. LLQ pressure was applied to intubate the ascending colon Findings: Terminal Ileum: Not evaluated Cecum: A 3-4 mm sessile polyp - removed with a cold snare and polyp was not retrieved Ascending Colon: A 7-8 mm sessile polyp in the mid AC - removed with a cold snare. Transverse Colon: Normal Descending Colon: Normal Sigmoid Colon: Moderate diverticulosis Rectum: Normal Ano-rectum: Moderate internal hemorrhoids Colon preparation: Good after some irrigation. [place] Bowel Preparation Scale Right colon; 2 Transverse colon: 2 Left colon; 2 (0 = Unprepared colon segment with mucosa not seen due to solid stool that cannot be cleared. 1 = Portion of mucosa of the colon segment seen, but other areas of the colon segment not well seen due to staining, residual stool and/or opaque liquid. 2 = Minor amount of residual staining, small fragments of stool and/or opaque liquid, but mucosa of colon segment seen well. 3 = Entire mucosa of colon segment seen well with no residual staining, small fragments of stool or opaque liquid) Impression and Post Procedure Diagnosis: Colonoscopy Findings: Two small polyps were removed Moderate diverticulosis seen in the sigmoid colon Moderate hemorrhoids on retroflexed exam. Plan: Pt has a FU appointment on 04/14/25 with Jeanne Salcido NP Repeat Colonoscopy in 5 years if polyps are adenomatous and 10 year if polyps are hyperplastic. Above findings were reviewed with the patient and relevant handouts were given and the discharge area.
[2025-04-07 12:22] VITALS: BP 96/69; PULSE 70; RESP 16; TEMP 36.9; O2SAT 96
[2025-04-07 12:35] VITALS: BP 105/68; PULSE 60; RESP 16; TEMP 36.6; O2SAT 96
== END 2025-04-07 13:03 | disposition home or self-care (01) ==
PROVIDERS: Nurse Practitioner; PCP Internal Medicine; Visit Provider Internal Medicine Gastroenterology
PROC: 0DJD8ZZ Inspection of Lower Intestinal Tract, Via Natural or Artificial Opening Endoscopic (ICD-10-PCS; CPT 45378; principal; 2025-04-07 11:00)
DX: Z12.11 Encounter for screening for malignant neoplasm of colon (principal); D12.2 Benign neoplasm of ascending colon; K56.2 Volvulus; K57.30 Diverticulosis of large intestine without perforation or abscess without bleeding; K64.8 Other hemorrhoids; E11.9 Type 2 diabetes mellitus without complications; I10 Essential (primary) hypertension; E78.00 Pure hypercholesterolemia, unspecified; Z79.02 Long term (current) use of antithrombotics/antiplatelets; Z79.84 Long term (current) use of oral hypoglycemic drugs; Z79.899 Other long term (current) drug therapy
CPT/HCPCS: 45385; 81025; 82947; 88305; J2003; J2704

== ENCOUNTER → 2025-04-07 09:02 | Outpatient (BNV) | payer OTHER, SELFPAY | PROVIDERS: PCP Internal Medicine; Visit Provider Internal Medicine Gastroenterology | DX: Z12.11 Encounter for screening for malignant neoplasm of colon (principal); K63.5 Polyp of colon; K57.90 Diverticulosis of intestine, part unspecified, without perforation or abscess without bleeding; K64.8 Other hemorrhoids | CPT/HCPCS: 45385 ==

== ENCOUNTER 2025-06-14 08:41 | Outpatient (REF) | payer OTHER, SELFPAY ==
--- OUTSIDE RECORDS SUMMARY | 2025-06-14 08:45 | XMS_ITS | Clinical Summary ---
Author Organization [employer] Address [address] [place] [address] Care Team Providers Care Pulverizer Name Role Phone Anna Ortiz DMD Unavailable Unavailable PcpYazan Unassigned Primary Care Provider U navailable [...] Mammogram 08/28/2019 08/28/2017 COVID-19 Vaccine (3 - 2024-2 6 season) 2025 01/15/2021, 12/18/2020 Influenza Vaccine (#1) 2025 , 08/07/2017 Zoster Vaccines (1 of 2) 2025 [...] Years) and At-Risk Patients (6 to 49) Years Aged Out No longer eligible b ased [...] result details Legacy Procedure: Mammogram Historical Provider IMSam BI PROCEDURES Final R esult from Last 3 Months or Most Recently Relevant to Health Maintenance Care Teams Pulverizer Relationship Specialty Start Date End Date Yazan Sullivan Unassigned PCP - General Family Medicine 01/03/23 Anna Ortiz DMD Dentist 07/22/22
[2025-06-14 11:10] LABS: MANUAL DIFF FLAG NO
[2025-06-14 11:14] LABS: Hematocrit 42.5 % (37.0-47.0); Hemoglobin 14.2 g/dl (12.0-16.0); Imm Gran Abs Auto 0.02 X10*3/uL (0.00-0.03); Imm Gran Pct Auto 0.3 % (0.0-0.4); Lymphocytes Absolute Auto 2.8 X10*3/uL (1.2-4.9); Mean Corpuscular HGB Conc 33.4 g/dl (31.0-35.0); Mean Corpuscular Hemoglobin 29.5 pg (27.0-33.0); Mean Corpuscular Volume 88.4 fL (80.0-98.0); NRBC Abs Auto 0.000 X10*3/uL (0.0-0.012); NRBC Pct Auto 0.0 /100WBC (0.0-0.2); Platelet Count 303 X10*3/uL (160-400); Red Blood Count 4.81 X10*6/uL (4.20-5.50); White Blood Count 7.6 X10*3/uL (4.8-10.8)
[2025-06-14 11:26] LABS: Hemoglobin A1C 193.0958 umol/L; Total Hemoglobin (HGBA1C) 3729.5620 umol/L
[2025-06-14 12:01] LABS: Alanine Aminotransferase 37 U/L (0-31); Albumin Level 4.4 g/dL (3.5-5.0); Alkaline Phosphatase 48 U/L (39-117); Anion Gap 11 (12-20); Aspartate Amino Transferase 23 U/L (5-31); Blood Urea Nitrogen 17 mg/dL (9-16); Calcium 9.1 mg/dL (8.4-10.2); Carbon Dioxide 22 mmol/L (22-29); Chloride 109 mmol/L (96-108); Cholesterol 175 mg/dL (<200); Estimated Glomerular Filt Rate > 60; HDL Cholesterol 36 mg/dL (>40); Potassium 3.9 mmol/L (3.3-5.1); Sodium 138 mmol/L (135-145); Total Protein 6.9 g/dL (6.5-8.0); Triglycerides 136 mg/dL (<150)
== END 2025-06-14 08:42 | disposition home or self-care (01) ==
LOC: HO.HMGCLDS 08:41
PROVIDERS: PCP Internal Medicine; Visit Provider Internal Medicine
DX: E11.9 Type 2 diabetes mellitus without complications (principal); E78.5 Hyperlipidemia, unspecified; I10 Essential (primary) hypertension
CPT/HCPCS: 36415; 80053; 80061; 82043; 82570; 83036; 84443; 85025

== ENCOUNTER 2025-06-16 10:12 | Outpatient (AMB) | payer OTHER, SELFPAY ==
[2025-06-16 10:24] VITALS: BP 108/68; PULSE 96; RESP 18; TEMP 36.6; BMI 23.6
--- NOTE | 2025-06-16 10:24 | A.OFFPC_ITS ---
Vital Signs 06/16/25 10:24 Height 5 ft 8.11 in Weight 156 lb BMI 23.6 BP 108/68 Blood Pressure Location Lt brachial Position Sitting Respiration 18 Pulse 96 Pulse Source Pulse Oximeter Temp 97.8 F Temp Source Oral Intake Visit Reasons: follow up Intake Note: Pt is here today for a follow up visit on DM. Allergies tirzepatide (From Mounjaro) Adverse Reaction (Verified 06/16/25 10:43) leg pain Medication List - Last Reconciled 06/16/25 by Shelli Guadarrama MD atorvastatin 40 mg PO DAILY blood sugar diagnostic (FreeStyle Lite Strips) Test blood sugar once a day empagliflozin-linagliptin 25-5 mg (Glyxambi) 1 tab PO DAILY lancets (FreeStyle Lancets) As directed lisinopril 10 mg PO DAILY metformin ER 1,000 mg (2 x 500 mg) PO BID Ozempic (semaglutide) 1 mg (0.75 mL) subcut QWEEK NS Tobacco use date assessed: 01/27/25 Dental Screening Dental Screen Date: 01/27/25 HPI follow up HPI Details Pt presents for f/u DM2, HTN, hyperlipid, stable on meds. Pt did not tolerate Mounjaro. She developed legs pains and PATRICIA. She has been taking 0.5 mg of Ozempic weekly and has been tolerating medication well. Patient complains of perimenopausal symptoms with the hot flashes insomnia and mood swings. She has been taking [id number] Estroven with some relief. [facility] Medical History Blurred vision, bilateral Hyperlipidemia Back pain Normal pelvic exam High cholesterol Hypertension Diabetes Surgical History (Updated 06/16/25 @ 10:49 by Shelli Guadarrama MD) Hx of colonoscopy Hx of abdominoplasty History of esophagogastroduodenoscopy (EGD) No pertinent past surgical history Family History Father Hypertension CVA (cerebral vascular accident), Onset Age: 53 Social History Household Members Other:: , from [place] Housing: Condominium Alcohol intake: current Alcohol intake frequency: holidays/special occasions only Patient Tobacco Use Status: Former Tobacco user e-Cigarette/Vaping Use: Never Used service: No Current occupational status: employed Cognitive needs: No Hearing needs: No Vision needs: No Questionnaire PHQ-9 Over the last 2 weeks, how often have you been bothered by any of the following problems? 1. Little interest or pleasure in doing things: not at all 2. Feeling down, depressed, or hopeless: not at all 3. Trouble falling or staying asleep, or sleeping too much: more than half the days 4. Feeling tired or having little energy: nearly every day 5. Poor appetite or overeating: not at all 6. Feeling bad about yourself - or that you are a failure or have let yourself or your family down: not at all 7. Trouble concentrating on things, such as reading the newspaper or watching television: not at all 8. Moving or speaking so slowly that other people could have noticed. Or the opposite - being so fidgety or restless that you have been moving around a lot more than usual: not at all 9. Thoughts that you would be better off or of hurting yourself in some way: not at all Total score: 5 Depression Screening Interpretation: Negative Depression Screening Done: Yes Source: Developed by Drs. Vinnie George, Veronique Mayers, Herman Nicole and colleagues, with an educational angel from [employer]. Thrive Questionnaire Date Thrive assessed: 01/27/25 I am a: Patient What is your living situation today?: I have a steady place to live Within the past 12 months, did the food you bought not last and you didn't have the money to get more?: Never true Within the past 12 months, did you worry whether your food would run out before you got money to buy more?: Never true Do you have trouble paying for medicines?: No Do you have trouble getting transportation to medical appointments?: No Do you have trouble paying your heating and electricity bill?: No Do you have trouble taking care of your child, family member or friend?: No Do you have trouble with day-to-day activities such as bathing, preparing meals, shopping, managing finances, etc.?: No Are you currently unemployed and looking for a job?: No Are you interested in more education?: Yes Please select the resources that you would like help with: None Currently or been in a relationship where the following occur: No concerns reported THRIVE Score: 0 CHELLY-7 AMB Questionnaire CHELLY-7 Date CHELLY - 7 assessed: 06/03/24 Feeling nervous, anxious, or on edge: 0 = Not at all Not being able to stop or control worryin = Not at all Worrying too much about different things: 0 = Not at all Trouble relaxin = Nearly every day Being so restless that it is hard to sit still: 0 = Not at all Becoming easily annoyed or irritable: 3 = Nearly every day Feeling afraid as if something awful might happen: 0 = Not at all Total CHELLY-7 score (0-4 normal; 5-9 mild; 10-14 moderate; 15-21 severe): 6 Source: Developed by Drs. Vinnie George, Veronique Mayers, Herman Nicole and colleagues, with an educational agnel from [employer]. Review of Systems Const All systems reviewed & are unremarkable except as noted in HPI and below Eyes Reports no additional complaints ENT Reports no additional complaints Card Reports no additional complaints Resp Reports no additional complaints GI Reports no additional complaints Reports no additional complaints Physical exam (Primary Care) Vital Signs: Last Vital Signs Temp 97.8 F 06/16/25 10:24 Pulse 96 06/16/25 10:24 Resp 18 06/16/25 10:24 BP 108/68 06/16/25 10:24 BMI result Body Mass Index 23.6 Tobacco/Smoking Status: Tobacco use Status Tobacco use date assessed 01/27/25 06/16/25 10:25 Patient Tobacco Use Status Former Tobacco user 06/16/25 10:25 e-Cigarette/Vaping Use Never Used 06/16/25 10:25 PHQ-9: PHQ-9 Score PHQ-9: Total score 5 06/16/25 10:34 Depression Screening Interpretation: Negative Thrive Assessment: Date of Thrive Assessment Date Thrive assessed 01/27/25 06/16/25 10:25 Currently or been in a relationship where the following occur: No concerns reported Const General: no acute distress HENMT Head: Yes normal to inspection Face and sinus: Yes normal facial exam Mouth: Normal oral and palatal mucosa present Throat: Yes posterior oropharynx normal Eyes General: appearance normal, both eyes and all related structures Neck Neck: Yes supple Resp Effort & Inspection: normal respiratory effort Auscultation: clear to auscultation bilaterally Cardio Rhythm: regular rhythm Heart sounds: S1 normal heart sound present and S2 normal heart sound present GI Inspection: Yes normal to inspection Palpation (GI): Soft to palpation Percussion: Yes normal to percussion Auscultation: normal bowel sounds Coding Level of Care Code Est Pt Level 4 (18822) Diagnoses Hypertension I10 Hyperlipidemia E78.5 Diabetes E11.9 Assessment & Plan Assessment & Plan (1) Hypertension: Code(s): I10 - Essential (primary) hypertension Category: Medical Plan: Continue lisinopril (2) Hyperlipidemia: Code(s): E78.5 - Hyperlipidemia, unspecified Category: Medical Plan: Continue statin (3) Diabetes: Comment: Intolerant to Mounjaro cause headaches and legs pain Code(s): E11.9 - Type 2 diabetes mellitus without complications Category: Medical Plan: A1c is 6.9, ADA diet regular exercise discussed with the patient. She will increase Ozempic to 1 mg for 1 month and then to 2 mg as tolerated. Follow-up in 3 months with a fasting labs before Orders: Orders Lipid Panel 3 Months E11.9 - Type 2 diabetes mellitus without complications, E78.5 - Hyperlipidemia, unspecified, I10 - Essential (primary) hypertension Microalbumin, Random (w Creat) 3 Months E11.9 - Type 2 diabetes mellitus without complications, E78.5 - Hyperlipidemia, unspecified, I10 - Essential (primary) hypertension Comprehensive [place]. Panel Fast 3 Months E11.9 - Type 2 diabetes mellitus without complications, E78.5 - Hyperlipidemia, unspecified, I10 - Essential (primary) hypertension Complete Blood Count Auto Diff 3 Months E11.9 - Type 2 diabetes mellitus without complications, E78.5 - Hyperlipidemia, unspecified, I10 - Essential (primary) hypertension Hemoglobin A1c 3 Months E11.9 - Type 2 diabetes mellitus without complications, E78.5 - Hyperlipidemia, unspecified, I10 - Essential (primary) hypertension Medications: New Ozempic (semaglutide) 1 mg (0.75 mL) subcut QWEEK 3 mL 0RF NS Discontinued Ozempic (semaglutide) Discontinued Reason: Doctor's Order 0.5 mg (0.736 mL) subcut QWEEK 3 mL 1RF NS
--- OUTSIDE RECORDS SUMMARY | 2025-06-16 12:33 | XMS_ITS | Clinical Summary ---
Author Organization [employer] Address [address] [place] [address] Care Team Providers Care Account Financial Manager Name Role Phone Anna Ortiz DMD Unavailable [...] Recently Relevant to Health Maintenance Care Teams Account Financial Manager Relationship Specialty Start Date End Date Yazan Sullivan Unassigned PCP - General Family Medicine 01/03/23 Anna Ortiz DMD Dentist 07/22/22
== END 2025-06-16 11:12 | disposition home or self-care (01) ==
LOC: HO.HMCC 10:14
PROVIDERS: PCP Internal Medicine; Visit Provider Internal Medicine
DX: I10 Essential (primary) hypertension (principal); E78.5 Hyperlipidemia, unspecified; E11.9 Type 2 diabetes mellitus without complications

== ENCOUNTER → 2025-06-16 10:12 | Outpatient (BNVA) | payer OTHER, SELFPAY | PROVIDERS: PCP Internal Medicine; Visit Provider Internal Medicine | DX: E11.9 Type 2 diabetes mellitus without complications (principal); I10 Essential (primary) hypertension; E78.5 Hyperlipidemia, unspecified; Z79.899 Other long term (current) drug therapy | CPT/HCPCS: 99212 ==